=== PATIENT | male | born 1970 | race American Indian/Alaskan Native ===

== ENCOUNTER 2021-12-11 09:16 | Day surgery (SDC) | payer MEDICAID, SELFPAY ==
[2021-12-11] VITALS (15 sets, daily range): BP systolic 127–218; BP diastolic 74–147; PULSE 65–103; RESP 13–27; TEMP 36.2–37.4; O2SAT 96–100
--- NOTE | 2021-12-11 09:38 | ECG_ITS ---
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 Measurements Intervals [place] Rate: 64 P: 17 [place]: 175 QRS: -6 QRSD: 91 T: 10 QT: 425 QTc: 440 Interpretive Statements SINUS RHYTHM No previous ECG available for comparison Electronically Signed On 12-12-2021 9:19:31 CDT by Gunner Armando M.D. [id number]
--- NOTE | 2021-12-11 09:42 | W.ED.ABDPA2 ---
Documented by User: WAYNE Garcia 12/11/21 10:51 HPI - Abdominal Pain General: Chief Complaint: Abdominal Pain Stated Complaint: Says his guts are burning Time Seen by Provider: 12/11/21 09:22 History of Present Illness: Patient is a 51-year-old male comes to the ED with abdominal pain. Symptoms started approximately 2 hours ago. He is also having nausea and has been vomiting bile since onset of pain. Abdominal pain is located in the left and right lower quadrant and he rates the pain a 10 out of 10. Describes abdominal pain as a intense burning pain. He has never had any abdominal pain like this before and denies any past abdominal surgeries. Any movement with the torso causes worsening pain. Denies any fevers, chills, chest pain, shortness of breath, bladder or bowel symptoms. Patient says he has had normal BMs and had a normal bowel movement this morning. Yesterday he describes feeling completely normal and had no symptoms. Last meal was before midnight yesterday evening. Associated Symptoms: Reports nausea and vomiting; Denies chills, constipation, diarrhea, dysuria, fever(s), hematochezia and hematuria Review of Systems Const: Denies: fever(s), chills or fatigue Eyes: Denies: change in vision or eye discomfort ENMT: Denies: throat pain, odynophagia, nasal discharge or nasal congestion Card: Denies: chest pain, palpitations, edema, swelling of feet/ankles, dyspnea on exertion or orthopnea Resp: Denies: dyspnea, productive cough or non-productive cough GI: Reports: abdominal pain, nausea and vomiting; Denies: diarrhea, constipation or hematochezia : Denies: flank pain, difficulty urinating, dysuria or hematuria Musc: Denies: neck pain, back pain or extremity swelling Skin/Breast: Denies: rash or new lesions Neuro: Denies: headache(s), numbness in extremities or weakness in extremities PFSH ED PFSH: Medical History No pertinent family history Surgical History No pertinent past surgical history Physical Exam Const: COMMON NORMALS: patient oriented x3 and alert GENERAL APPEARANCE: cooperative and in distress; not comfortable (Patient appears uncomfortable and in distress due to pain) HENMT: COMMON NORMALS: normocephalic HEAD & SCALP: normocephalic MOUTH: Normal oral and palatal mucosa present THROAT: posterior oropharynx normal and uvula midline Neck/C-Spine: COMMON NORMALS: supple GENERAL: Yes normal visual inspection Resp: COMMON NORMALS: normal respiratory effort, No retractions, No use of accessory muscles and clear to auscultation bilaterally AUSCULTATION: clear to auscultation bilaterally Cardio: COMMON NORMALS: regular rate, regular rhythm, S1 normal heart sound present, S2 normal heart sound present, No gallops present (Cardio), No clicks present (Cardio), No murmurs present (Cardio) and Peripheral pulses 2+ throughout RATE: regular rate RHYTHM: regular rhythm HEART SOUNDS: S1 normal heart sound present and S2 normal heart sound present PERIPHERAL PULSES: Peripheral pulses 2+ throughout GI: COMMON NORMALS: Normal to inspection, nondistended, normoactive bowel sounds present, Soft to palpation and no masses PALPATION: Yes Soft to palpation and Yes Tenderness to palpation present (GI) Details: LLQ and RLQ : COMMON NORMALS: Yes no CVA tenderness BLADDER/KIDNEY EXAM: Yes no CVA tenderness Back/Pelvis: COMMON NORMALS: no CVA tenderness Extremity: COMMON NORMALS: normal to inspection Neuro: COMMON NORMALS: patient oriented x3 SENSORIUM/ORIENTATION: Yes alert GAIT: Yes Normal gait present Skin: GENERAL SKIN EXAM: dry skin Course Reevaluation(s): Reevaluation #1: After patient received IV morphine and Zofran his symptoms improved and he was resting comfortably on exam bed. Time: 10:30 Consultations: Consultation #1: I contacted Dr. Pearl the general surgeon on-call and told about patient case. He is can admit patient and take him to surgery today. Time: 10:35 Vital Signs: Vital signs: Vital Signs Temperature 97.8 F 12/11/21 09:24 Pulse Rate 65 12/11/21 10:17 Respiratory Rate 16 12/11/21 10:17 Blood Pressure 150/112 12/11/21 10:17 Pulse Oximetry 99 12/11/21 10:17 MDM - Abdominal Pain Medical Decision Making Patient is a 51-year-old male comes to the ED with abdominal pain nausea and vomiting. Denies any past abdominal surgeries. Patient has elevated blood pressure but rest of vitals are stable. Patient patient has central obesity and appears in some distress due to pain. right lower and left lower quadrant tenderness upon palpation. Rest of exam is benign. White blood cell count 12. CT of abdomen shows acute appendicitis. I contacted Dr. Pearl and told about patient case and CT findings of acute appendicitis. Last p.o. intake was yesterday evening, so Dr. Pearl will take him to surgery today. I contacted her community chest officer Christina and she contacted bottle house quality control technician to get surgical team ready. IV Zosyn started here in the ED. Lab Data I reviewed the patient's lab results. : 12/11/21 10:11 12/11/21 10:11 Labs/Radiology: Radiology Impressions Abdomen/Pelvis CT 12/11/21 09:47 IMPRESSION: Acute appendicitis. ADDENDUM: 12/11/21 1029 THIS REPORT CONTAINS FINDINGS THAT MAY BE CRITICAL TO PATIENT CARE. The findings were verbally communicated via telephone conference with PAULINE LIVINGSTON at 10:27 AM CDT on 12/11/2021. The findings were acknowledged and understood. Laboratory Results WBC 12.0 10^3/uL (4.0-10.0) H 12/11/21 10:11 RBC 5.56 10^6/uL (4.1-5.3) H 12/11/21 10:11 Hgb 17.2 g/dL (11.7-16.6) H 12/11/21 10:11 Hct 48.4 % (42.0-52.0) 12/11/21 10:11 MCV 87.1 fl (80-94) 12/11/21 10:11 MCH 30.9 pg (28.0-34.0) 12/11/21 10:11 MCHC 35.5 g/dL (30.0-36.0) 12/11/21 10:11 RDW 12.6 % (12.1-15.1) 12/11/21 10:11 Plt Count 237 10^3/cmm (130-400) 12/11/21 10:11 MPV 11.1 fL (7.4-10.4) H 12/11/21 10:11 Neut % (Auto) 81.4 % 12/11/21 10:11 Lymph % (Auto) 12.0 % 12/11/21 10:11 [place] % (Auto) 4.6 % 12/11/21 10:11 Eos % (Auto) 0.7 % 12/11/21 10:11 Baso % (Auto) 0.7 % 12/11/21 10:11 Neut # (Auto) 9.77 10^3/uL (1.8-7.7) H 12/11/21 10:11 Lymph # (Auto) 1.4 10^3/uL (0.8-4.8) 12/11/21 10:11 [place] # (Auto) 0.6 10^3/uL (0.2-0.9) 12/11/21 10:11 Eos # (Auto) 0.1 10^3/uL (0.0-0.8) 12/11/21 10:11 Baso # (Auto) 0.1 10^3/uL (0.0-0.1) 12/11/21 10:11 Nucleated RBC % (auto) 0 % 12/11/21 10:11 Nucleated RBCs # 0.0 /100WBC 12/11/21 10:11 Sodium 140 mmol/L (136-145) 12/11/21 10:11 Potassium 4.2 mmol/L (3.5-5.1) 12/11/21 10:11 Chloride 105 mmol/L (98-107) 12/11/21 10:11 Carbon Dioxide 22 mmol/L (22-29) 12/11/21 10:11 Anion Gap 17.2 (5-19) 12/11/21 10:11 BUN 18 mg/dL (6-20) 12/11/21 10:11 Creatinine 1.0 mg/dL (0.7-1.2) 12/11/21 10:11 Calculated Osmolality 295 mOsm/kg (285-295) 12/11/21 10:11 Lactic Acid 1.9 mmol/L (0.5-2.2) 12/11/21 10:11 Calcium 8.9 mg/dL (8.5-10.5) 12/11/21 10:11 Total Bilirubin 0.4 mg/dL (0.15-1.2) 12/11/21 10:11 AST 18 U/L (0-40) 12/11/21 10:11 ALT 35 U/L (0-41) 12/11/21 10:11 Alkaline Phosphatase 116 IU/L (40-130) 12/11/21 10:11 Total Protein 7.8 g/dL (6.6-8.7) 12/11/21 10:11 Albumin 4.6 g/dL (3.5-5.2) 12/11/21 10:11 Globulin 3.2 g/dL (1.3-4.6) 12/11/21 10:11 Lipase 26 U/L (13-60) 12/11/21 10:11 Discharge Plan Discharge Patient Disposition: Admitted As Inpatient Clinical Impression: Acute appendicitis Qualifiers: Acute appendicitis type: with localized peritonitis Appendicitis gangrene presence: without gangrene Appendicitis perforation presence: without perforation Appendicitis abscess presence: without abscess Qualified Code(s): K35.30 - Acute appendicitis with localized peritonitis, without perforation or gangrene Condition: Stable Sign Out Sign Out Data: Patient Sign Out occurred on 12/11/21 at 10:52. Patient's care was discussed, and care was transferred from to Junior Del Rio DO. Coding Level of Care Code ED It Infrastructure Architect for Chg Fwd Exam Comprehensive Documented by User: Junior Del Rio DO 12/11/21 11:14 HPI - Abdominal Pain General: Chief Complaint: Abdominal Pain Stated Complaint: Says his guts are burning Time Seen by Provider: 12/11/21 09:22 [facility] PFSH: Medical History No pertinent family history Surgical History No pertinent past surgical history Course Vital Signs: Vital signs: Vital Signs Temperature 97.8 F 12/11/21 09:24 Pulse Rate 65 12/11/21 10:17 Respiratory Rate 16 12/11/21 10:17 Blood Pressure 150/112 12/11/21 10:17 Pulse Oximetry 99 12/11/21 10:17 MDM - Abdominal Pain Medical Decision Making Patient is a 51-year-old male comes to the ED with abdominal pain nausea and vomiting. Denies any past abdominal surgeries. Patient has elevated blood pressure but rest of vitals are stable. Patient patient has central obesity and appears in some distress due to pain. right lower and left lower quadrant tenderness upon palpation. Rest of exam is benign. White blood cell count 12. CT of abdomen shows acute appendicitis. I contacted Dr. Pearl and told about patient case and CT findings of acute appendicitis. Last p.o. intake was yesterday evening, so Dr. Pearl will take him to surgery today. I contacted her community chest officer Christina and she contacted bottle house quality control technician to get surgical team ready. IV Zosyn started here in the ED. Chart reviewed and patient discussed with midlevel. Agree with assessment and plan. Patient seen and examined he has diffuse abdominal tenderness. Interestingly it is not focal to the right lower quadrant. CT does show acute appendicitis his white count at 12,000 with a left shift. Pauline Livingston is talked to surgery patient will be taken directly from the ER to the operating room. Lab Data : 12/11/21 10:11 12/11/21 10:11 Labs/Radiology: Radiology Impressions Abdomen/Pelvis CT 12/11/21 09:47 IMPRESSION: Acute appendicitis. ADDENDUM: 12/11/21 1029 THIS REPORT CONTAINS FINDINGS THAT MAY BE CRITICAL TO PATIENT CARE. The findings were verbally communicated via telephone conference with PAULINE LIVINGSTON at 10:27 AM CDT on 12/11/2021. The findings were acknowledged and understood. Laboratory Results WBC 12.0 10^3/uL (4.0-10.0) H 12/11/21 10:11 RBC 5.56 10^6/uL (4.1-5.3) H 12/11/21 10:11 Hgb 17.2 g/dL (11.7-16.6) H 12/11/21 10:11 Hct 48.4 % (42.0-52.0) 12/11/21 10:11 MCV 87.1 fl (80-94) 12/11/21 10:11 MCH 30.9 pg (28.0-34.0) 12/11/21 10:11 MCHC 35.5 g/dL (30.0-36.0) 12/11/21 10:11 RDW 12.6 % (12.1-15.1) 12/11/21 10:11 Plt Count 237 10^3/cmm (130-400) 12/11/21 10:11 MPV 11.1 fL (7.4-10.4) H 12/11/21 10:11 Neut % (Auto) 81.4 % 12/11/21 10:11 Lymph % (Auto) 12.0 % 12/11/21 10:11 [place] % (Auto) 4.6 % 12/11/21 10:11 Eos % (Auto) 0.7 % 12/11/21 10:11 Baso % (Auto) 0.7 % 12/11/21 10:11 Neut # (Auto) 9.77 10^3/uL (1.8-7.7) H 12/11/21 10:11 Lymph # (Auto) 1.4 10^3/uL (0.8-4.8) 12/11/21 10:11 [place] # (Auto) 0.6 10^3/uL (0.2-0.9) 12/11/21 10:11 Eos # (Auto) 0.1 10^3/uL (0.0-0.8) 12/11/21 10:11 Baso # (Auto) 0.1 10^3/uL (0.0-0.1) 12/11/21 10:11 Nucleated RBC % (auto) 0 % 12/11/21 10:11 Nucleated RBCs # 0.0 /100WBC 12/11/21 10:11 Sodium 140 mmol/L (136-145) 12/11/21 10:11 Potassium 4.2 mmol/L (3.5-5.1) 12/11/21 10:11 Chloride 105 mmol/L (98-107) 12/11/21 10:11 Carbon Dioxide 22 mmol/L (22-29) 12/11/21 10:11 Anion Gap 17.2 (5-19) 12/11/21 10:11 BUN 18 mg/dL (6-20) 12/11/21 10:11 Creatinine 1.0 mg/dL (0.7-1.2) 12/11/21 10:11 Calculated Osmolality 295 mOsm/kg (285-295) 12/11/21 10:11 Lactic Acid 1.9 mmol/L (0.5-2.2) 12/11/21 10:11 Calcium 8.9 mg/dL (8.5-10.5) 12/11/21 10:11 Total Bilirubin 0.4 mg/dL (0.15-1.2) 12/11/21 10:11 AST 18 U/L (0-40) 12/11/21 10:11 ALT 35 U/L (0-41) 12/11/21 10:11 Alkaline Phosphatase 116 IU/L (40-130) 12/11/21 10:11 Total Protein 7.8 g/dL (6.6-8.7) 12/11/21 10:11 Albumin 4.6 g/dL (3.5-5.2) 12/11/21 10:11 Globulin 3.2 g/dL (1.3-4.6) 12/11/21 10:11 Lipase 26 U/L (13-60) 12/11/21 10:11 Discharge Plan Discharge Patient Disposition: Admitted As Inpatient Clinical Impression: Acute appendicitis Qualifiers: Acute appendicitis type: with localized peritonitis Appendicitis gangrene presence: without gangrene Appendicitis perforation presence: without perforation Appendicitis abscess presence: without abscess Qualified Code(s): K35.30 - Acute appendicitis with localized peritonitis, without perforation or gangrene Condition: Stable Sign Out Sign Out Data: Patient Sign Out occurred on 12/11/21 at 10:52. Patient's care was discussed, and care was transferred from to Junior Del Rio DO. Coding Level of Care Code ED It Infrastructure Architect for g Fwd Exam Comprehensive
--- NOTE | 2021-12-11 09:47 | CTR_ITS ---
PROCEDURE INFORMATION: Exam: CT Abdomen And Pelvis Without Contrast Exam date and time: 12/11/2021 9:59 AM Age: 51 years old Clinical indication: Abdominal pain; Localized; Right lower quadrant (rlq); Additional info: Llq abdominal pain, n/v TECHNIQUE: Imaging protocol: Computed tomography of the abdomen and pelvis without contrast. Radiation optimization: All CT scans at this facility use at least one of these dose optimization techniques: automated exposure control; mA and/or kV adjustment per patient size (includes targeted exams where dose is matched to clinical indication); or iterative reconstruction. COMPARISON: No relevant prior studies available. RADIATION DOSE METRICS: Total DLP (mGy-cm): 1857.51 FINDINGS: Liver: Normal. No mass. Gallbladder and bile ducts: Normal. No calcified stones. No ductal dilation. Pancreas: Normal. No ductal dilation. Spleen: Normal. No splenomegaly. Adrenal glands: Normal. No mass. Kidneys and ureters: Normal. No hydronephrosis. Stomach and bowel: Unremarkable. No obstruction. No mucosal thickening. Appendix: The appendix is dilated to a diameter of 12 mm and contains appendicoliths. This indicates acute appendicitis. There is no free fluid. No abscess is seen. Intraperitoneal space: See Appendix finding. Vasculature: Unremarkable. No abdominal aortic aneurysm. Lymph nodes: Unremarkable. No enlarged lymph nodes. Urinary bladder: Unremarkable as visualized. Reproductive: Unremarkable as visualized. Bones/joints: Degenerative changes are present in the spine. Soft tissues: There is a small uncomplicated fat containing umbilical hernia. CT/CT abdomen pelvis wo con [id number] IMPRESSION: Acute appendicitis.
[2021-12-11] MEDS: ondansetron 2 mg/ML SDV 2 mL 4 MG IVP (10:22)
[2021-12-11] MEDS: morphine 4 mg/mL SDV 1 mL IVP (10:22)
[2021-12-11 10:28] LABS: Basophils # 0.1 10^3/uL (0.0-0.1); Basophils % 0.7 %; Eosinophils # 0.1 10^3/uL (0.0-0.8); Eosinophils % 0.7 %; Hematocrit 48.4 % (42.0-52.0); Hemoglobin 17.2 g/dL (11.7-16.6); Lymphocytes # 1.4 10^3/uL (0.8-4.8); Mean Corpuscular HGB Conc 35.5 g/dL (30.0-36.0); Mean Corpuscular Hemoglobin 30.9 pg (28.0-34.0); Mean Corpuscular Volume 87.1 fl (80-94); Mean Platelet Volume 11.1 fL (7.4-10.4); Monocytes # 0.6 10^3/uL (0.2-0.9); Monocytes % 4.6 %; Neutrophils # 9.77 10^3/uL (1.8-7.7); Neutrophils % 81.4 %; Nucleated Red Blood Cells % 0 %; Platelet Count 237 10^3/cmm (130-400); Red Blood Count 5.56 10^6/uL (4.1-5.3); Red Cell Distribution Width 12.6 % (12.1-15.1)
--- NOTE | 2021-12-11 10:47 | P.ANESASSM_ITS ---
Pre-Anesthetic Assessment Height/Weight: Temp Pulse Resp BP Pulse Ox 97.8 F 65 16 150/112 99 12/11/21 09:24 12/11/21 10:17 12/11/21 10:17 12/11/21 10:17 12/11/21 10:17 Preop Diagnosis: appendicitis Familial anesthetic complications: None Was Beta Ariane taken within 24 hours: N/A Was Clonidine taken within 24 hours: N/A Social Alcohol and Tobacco 6 drinks per day, last drink 4 days ago pack(s) per day Exam alert, oriented x 3, clear to auscultation bilaterally and regular rate & rhythm Airway Submandibular: within normal limits Cervical ROM: within normal limits Mallampati: Class I Dentition: chipped (Chipped upper front tooth ) History/ROS No significant complaints Pulmonary None reported CV/HEM None reported None reported Hepatic None reported GI Gastroesophageal Reflux Disease Reflux N/V today Acute appendicitis Metabolic None reported Musc/skel None reported Neuropsych None reported Anesthetic Plan ASA status: 3 Anesthesia: Anesthesia Evaluation and General Other: We discussed risk and benefits of general anesthesia including PONV, sore throat (sometimes severe), corneal abrasion, positioning and peripheral nerve injuries, life threatening allergic reaction, post operative ICU admission requiring prolonged intubation, stroke, heart attack, , and rare incidences of recall. Patient consents to proceed with general anesthesia. Plan RSI, GETA Pre op meds famotidine 20 mg PIV, 2 mg PIV midazolam, scopolamine patch, 25 mg diphenhydramine Risk of > 500 ml blood loss (7ml/kg in children): No Medications/Allergies Home Medications Medication Instructions Recorded Confirmed Last Taken Type No Known Home Medications 12/11/21 12/11/21 Unknown History Allergies Allergy/AdvReac Type Severity Reaction Status Date / Time No Known Allergies Allergy Unverified 12/11/21 10:46 [facility] Anesthesia Medical History No pertinent family history Surgical History No pertinent past surgical history Data Anesthesia : 12/11/21 10:11 12/11/21 10:11 Short CBC 12/11/21 Range/Units 10:11 WBC 12.0 H (4.0-10.0) 10^3/uL Hgb 17.2 H (11.7-16.6) g/dL Hct 48.4 (42.0-52.0) % MCV 87.1 (80-94) fl Plt Count 237 (130-400) 10^3/cmm Neut % (Auto) 81.4 % Neut # (Auto) 9.77 H (1.8-7.7) 10^3/uL Cardiac Studies: No Data to Display
[2021-12-11 10:49] LABS: Alanine Aminotransferase 35 U/L (0-41); Albumin Level 4.6 g/dL (3.5-5.2); Alkaline Phosphatase 116 IU/L (40-130); Anion Gap 17.2 (5-19); Aspartate Amino Transferase 18 U/L (0-40); Blood Urea Nitrogen 18 mg/dL (6-20); Calcium 8.9 mg/dL (8.5-10.5); Carbon Dioxide 22 mmol/L (22-29); Chloride 105 mmol/L (98-107); Globulin 3.2 g/dL (1.3-4.6); Glomerular Filtration Rate 79.1 mL/min (90-130); Glucose 152 mg/dL (65-115); Lipase 26 U/L (13-60); Osmolality Calculated 295 mOsm/kg (285-295); Potassium 4.2 mmol/L (3.5-5.1); Sodium 140 mmol/L (136-145); Total Bilirubin 0.4 mg/dL (0.15-1.2); Total Protein 7.8 g/dL (6.6-8.7)
[2021-12-11 10:50] LABS: Lactic Sepsis W/Reflex 1.9 mmol/L (0.5-2.2)
--- NOTE | 2021-12-11 11:16 | PM.HP ---
Providers/Chief Complaint Chief Complaint: Says his guts are burning History of Present Illness Onesimo Rivers is a 51 year old male who presents the hospital with a 3-hour history of lower abdominal pain. He reports that the pain is sharp and constant. It does not radiate. He rates the pain as 10 out of 10. Palpation and movement makes the pain worse. Nothing makes it better. He reports nausea and emesis but denies hematemesis. His last bowel movement was this morning. Denies hematochezia or melena. He reports chills but denies fever. Denies any other symptoms. Review of Systems General: Reports: 10 or more systems reviewed and unremarkable except in HPI and below Medications/Allergies Home Medications Medication Instructions Recorded Confirmed Last Taken Type No Known Home Medications 12/11/21 12/11/21 Unknown History Allergies Allergy/AdvReac Type Severity Reaction Status Date / Time No Known Allergies Allergy Unverified 12/11/21 10:46 PFSH Acute PFSH: Surgical History H/O left knee surgery Vitals/I&O/Wt Last Vital Signs Temp 97.8 F 12/11/21 09:24 Pulse 65 12/11/21 10:17 Resp 16 12/11/21 10:17 BP 150/112 12/11/21 10:17 Pulse Ox 99 12/11/21 10:17 Physical Exam Narrative: General : Patient is well developed , no acute distress, oriented x3 Head : Normal cephalic, a-traumatic. Ears : Pinnae and external canal are normal. Hearing is normal. Eyes : PERRLA, Sclera and injection are normal. No conjunctival discharge. Nose : Mucous membranes are without erythema. Throat : buccal mucosa is normal, gums are without significant recession or hypertrophy. Lungs : Equal chest rise bilaterally, no use of accessory muscles, trachea is midline. Cor : Rate and rhythm are normal. Abdomen : Soft, ND, TTP RLQ, no g/r/m Extremities : No edema, no cyanosis or clubbing, dorsalis pedis pulses are present bilaterally, non-tender to palpation of calves. Upper extremities are normal bilaterally. Back : non-tender to palpation, no CVA tenderness. Neuro : CN II - XII intact, Upper and lower extremities have equal and full strength Data : 12/11/21 10:11 12/11/21 10:11 Micro: Microbiology 12/11/21 10:43 Blood Culture - Preliminary Blood SPECIMEN COLLECTED 12/11/21 10:34 Blood Culture - Preliminary Blood SPECIMEN COLLECTED A&P Assessment and plan (1) Acute appendicitis: Laparoscopic Appendectomy The risks and benefits of the procedure, including but not limited to, bleeding, infection, scar, numbness, pain, damage to surrounding structures, conversion to an open procedure, were explained to the patient. He is understanding of the risks and wishes to proceed. Status: Acute Qualifiers: Acute appendicitis type: with localized peritonitis Appendicitis abscess presence: without abscess Appendicitis gangrene presence: without gangrene Appendicitis perforation presence: without perforation Qualified Code(s): K35.30 - Acute appendicitis with localized peritonitis, without perforation or gangrene Attestations Medical Necessity Statement*: Patient will undergo appendectomy. 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
--- NOTE | 2021-12-11 11:22 | SUR.PHASEI ---
1100 PT TO OPS BAY 8 PT AWAKE ALERT CLOTHES OFF AND GOWN ON, IV PATENT AND NS 1000 UP AT MOD RATE. AT BEDSIDE 1115 PT CARE ASSUMED BY GIOVANNA STARK.
[2021-12-11] MEDS: diphenhydrAMINE 50 mg/mL SDV 1mL 25 MG IVP (11:42)
[2021-12-11] MEDS: famotidine 20 mg/2 mL INJ IVP (11:45)
[2021-12-11] MEDS: piperacillin-tazobactam 3.375 GM in sodium chloride 0.9% (plus) 50 ML IV (11:52)
--- NOTE | 2021-12-11 12:26 | SUR.OPER ---
family updated of surgical status
--- NOTE | 2021-12-11 12:42 | P.OP_ITS ---
Operative Report Date of procedure: December 11, 2021 Pre-op diagnosis: Preop Diagnosis appendicitis Post-op diagnosis: acute appendicitis Procedure done: Laparoscopic appendectomy Specimens removed/disposition: appendix Surgeon: Dr. Leandro Pearl DO Estimated blood loss: 2 Complications: none apparent Brief History: Patient presented with acute appendicitis. Risks and benefits of surgery were explained and documented. Procedure: Patient was wheeled into the operative room and placed on the OR table in a supine position. Abdomen was inspected prepped and draped in usual sterile fashion. Time-out was performed and all present were in agreement. A 15 blade scalp was used to make a stab incision in the left upper quadrant and intra- abdominal insufflation was achieved using a Veress needle. After localizing the tissue incisions were made and a 12 millimeter trocar was placed into the umbilicus as well as a 5mm in the right lower quadrant and a 5 mm in the left lower quadrant . The appendix was identified and was mildly inflamed. I used the Voyant to ligate the mesoappendix at the base. I then used 2 PDS endo-loops to snare the base of the appendix. I then used the Voyant to ligate the appendix distally. The appendix was removed from the abdomen using an Endo- Catch bag through the umbilical incision. I examined the abdomen and no further pathology was identified. Hemostasis was noted. I then closed the umbilical site with a Alton-David and 0 Vicryl suture in a figure of 8 fashion. All ports removed. Skin was washed and dried. Incisions were closed with 4 O Vicryl in a subcuticular interrupted fashion. Skin glue was applied. Patient tolerated the procedure well.
--- NOTE | 2021-12-11 12:51 | PM.DCS ---
Discharge Providers Date of Discharge: December 11, 2021 Attending Provider at Discharge: Leandro Pearl DO Diagnoses at Discharge Discharge Diagnosis (1) Acute appendicitis: Status: Acute Qualifiers: Acute appendicitis type: with localized peritonitis Appendicitis abscess presence: without abscess Appendicitis gangrene presence: without gangrene Appendicitis perforation presence: without perforation Qualified Code(s): K35.30 - Acute appendicitis with localized peritonitis, without perforation or gangrene Reason for Visit Reason for Visit: Says his guts are burning Hospital Course Hospital Course Patient presented with acute appendicitis. He underwent laparoscopic appendectomy. Intraoperatively he was found to have very mild appendicitis. He was discharged home from the PACU with follow-up in general surgery in 2 weeks. Physical Exam Narrative: General : Patient is well developed , no acute distress, oriented x3 Head : Normal cephalic, a-traumatic. Ears : Pinnae and external canal are normal. Hearing is normal. Eyes : PERRLA, Sclera and injection are normal. No conjunctival discharge. Nose : Mucous membranes are without erythema. Throat : buccal mucosa is normal, gums are without significant recession or hypertrophy. Lungs : Equal chest rise bilaterally, no use of accessory muscles, trachea is midline. Cor : Rate and rhythm are normal. Abdomen : Soft, ND, appropriately tender to palpation, no g/r/m Extremities : No edema, no cyanosis or clubbing, dorsalis pedis pulses are present bilaterally, non-tender to palpation of calves. Upper extremities are normal bilaterally. Back : non-tender to palpation, no CVA tenderness. Neuro : CN II - XII intact, Upper and lower extremities have equal and full strength Discharge Data Studies Completed and Pending Completed Studies During Hospitalization Category Date Time Status CT abdomen pelvis wo con [id number] Urgent Cat Scan 12/11/21 09:47 Completed Pending at discharge Category Date Time Status Blood Culture Stat Lab 12/11/21 10:43 Results Urinalysis Stat Lab 12/11/21 09:38 Uncollected Pathology: Surgical [PTH] Routine Pth 12/11/21 12:27 Ordered Radiology Impressions Abdomen/Pelvis CT 12/11/21 09:47 IMPRESSION: Acute appendicitis. ADDENDUM: 12/11/21 1029 THIS REPORT CONTAINS FINDINGS THAT MAY BE CRITICAL TO PATIENT CARE. The findings were verbally communicated via telephone conference with PAULINE LIVINGSTON at 10:27 AM CDT on 12/11/2021. The findings were acknowledged and understood. Laboratory Results WBC 12.0 10^3/uL (4.0-10.0) H 12/11/21 10:11 RBC 5.56 10^6/uL (4.1-5.3) H 12/11/21 10:11 Hgb 17.2 g/dL (11.7-16.6) H 12/11/21 10:11 Hct 48.4 % (42.0-52.0) 12/11/21 10:11 MCV 87.1 fl (80-94) 12/11/21 10:11 MCH 30.9 pg (28.0-34.0) 12/11/21 10:11 MCHC 35.5 g/dL (30.0-36.0) 12/11/21 10:11 RDW 12.6 % (12.1-15.1) 12/11/21 10:11 Plt Count 237 10^3/cmm (130-400) 12/11/21 10:11 MPV 11.1 fL (7.4-10.4) H 12/11/21 10:11 Neut % (Auto) 81.4 % 12/11/21 10:11 Lymph % (Auto) 12.0 % 12/11/21 10:11 Beauregard % (Auto) 4.6 % 12/11/21 10:11 Eos % (Auto) 0.7 % 12/11/21 10:11 Baso % (Auto) 0.7 % 12/11/21 10:11 Neut # (Auto) 9.77 10^3/uL (1.8-7.7) H 12/11/21 10:11 Lymph # (Auto) 1.4 10^3/uL (0.8-4.8) 12/11/21 10:11 Beauregard # (Auto) 0.6 10^3/uL (0.2-0.9) 12/11/21 10:11 Eos # (Auto) 0.1 10^3/uL (0.0-0.8) 12/11/21 10:11 Baso # (Auto) 0.1 10^3/uL (0.0-0.1) 12/11/21 10:11 Nucleated RBC % (auto) 0 % 12/11/21 10:11 Nucleated RBCs # 0.0 /100WBC 12/11/21 10:11 Sodium 140 mmol/L (136-145) 12/11/21 10:11 Potassium 4.2 mmol/L (3.5-5.1) 12/11/21 10:11 Chloride 105 mmol/L (98-107) 12/11/21 10:11 Carbon Dioxide 22 mmol/L (22-29) 12/11/21 10:11 Anion Gap 17.2 (5-19) 12/11/21 10:11 BUN 18 mg/dL (6-20) 12/11/21 10:11 Creatinine 1.0 mg/dL (0.7-1.2) 12/11/21 10:11 GFR Calculation 79.1 mL/min (90-130) L 12/11/21 10:11 Glucose 152 mg/dL (65-115) H 12/11/21 10:11 Calculated Osmolality 295 mOsm/kg (285-295) 12/11/21 10:11 Lactic Acid 1.9 mmol/L (0.5-2.2) 12/11/21 10:11 Calcium 8.9 mg/dL (8.5-10.5) 12/11/21 10:11 Total Bilirubin 0.4 mg/dL (0.15-1.2) 12/11/21 10:11 AST 18 U/L (0-40) 12/11/21 10:11 ALT 35 U/L (0-41) 12/11/21 10:11 Alkaline Phosphatase 116 IU/L (40-130) 12/11/21 10:11 Total Protein 7.8 g/dL (6.6-8.7) 12/11/21 10:11 Albumin 4.6 g/dL (3.5-5.2) 12/11/21 10:11 Globulin 3.2 g/dL (1.3-4.6) 12/11/21 10:11 Lipase 26 U/L (13-60) 12/11/21 10:11 Procedures Performed Laparoscopic appendectomy Vitals Last Vital Signs Temp 97.2 F L 12/11/21 11:00 Pulse 65 12/11/21 11:17 Resp 16 12/11/21 11:17 BP 150/112 12/11/21 11:17 Pulse Ox 99 12/11/21 11:17 Discharge Plan Discharge Patient Disposition: Home Condition: Stable Prescriptions: New hydrocodone-acetaminophen 5-325 mg tablet 1 tab PO Q4H PRN (Reason: pain) Qty: 30 0RF amoxicillin-pot clavulanate 875-125 mg tablet 1 tab PO Q12H 7 Days Qty: 14 0RF Discharge Orders: Discharge Order (Routine); Ordered 12/11/21 Ordered By: Leandro Pearl Referrals: Leandro Pearl DO [Physician] - 2 weeks Discharge Diet: Advance as tolerated Discharge Activity: Resume usual activity Activity Restrictions/Additional Instructions: Do not soak incisions under water for 2 weeks. Shower daily. No activity restrictions Discharge Attestations Time Spent in Discharge Care*: less than 30 min Quality Metrics Clinical Quality Measures [ No reported AMI, CVA or VTE this stay] Coding Level of Care Code Acute Chg FW DC note Diagnoses Acute appendicitis K35.30 Acute appendicitis type: with localized peritonitis Appendicitis abscess presence: without abscess Appendicitis gangrene presence: without gangrene Appendicitis perforation presence: without perforation
[2021-12-11] MEDS: labetalol 5 mg/mL SDV 20mL IVP ×2 (12:52→13:02)
[2021-12-11] MEDS: hyDRALAzine 20 mg/mL INJ 1 mL 10 MG IVP ×2 (12:57→13:24)
--- NOTE | 2021-12-11 13:18 | SUR.PHASEI ---
1246 PT TO PACU AWAKES TO VOICE, PT MOANING, QUICKLY BACK TO SLEEP MANUAL ASSIST NEEDED TO KEEP AIRWAY OPEN, SATS 96-98% WITH GOOD AIRMOVEMENT , ARony TAD CROSS TIE TURNER AT BEDSIDE, ORDERS GIVEN FOR LABETOLOL FOR ELEVATED BP , ORAL AIRWAY PLACED BY CROSS TIE TURNER AT BEDSIDE, PT TOLERATED WELL, MONITOR SR NO ECTOPY, IV TO LT AC #19 WITH NS 800ML UP AT MOD RATE, ID BRACELET TO LT WRIST, PT ID'D WITH 2 IDENTIFIERS, ABDOMEN LARGE ROUND SOFT WITH 4 SITES WITH SKIN GLUE , BILAT SCDS ON .
--- NOTE | 2021-12-11 13:36 | SUR.PHASEI ---
PT SLEEPS IF NOT DISTURBED, MONITOR SR NO ECTOPY, BP NOW 139/88 , SEE EARLIER BP MEDS GIVEN, DR MOREJON AT BEDSIDE, PT OK TO GO TO OPS SIDE, PT TO GO HOME TODAY.
--- NOTE | 2021-12-11 13:54 | ANE.PACU2 ---
Inpatient post-anesthesia follow up: Airway intact: Yes Vital signs: Temperature 98.4 F Pulse Rate 74 Respiratory Rate 20 Blood Pressure 127/74 Pulse Oximetry 99 Oxygen Delivery Me thod Nasal Cannula Oxygen Flow Rate 3 Fraction of Inspir ed Oxygen Hydration adequate: Yes Nausea and vomiting: No Pain level: 3 Mental status: Baseline
[2021-12-11] MEDS: HYDROcodone-acetaminophen 5-325 mg Tablet 1 TAB PO (14:11)
== END 2021-12-11 14:25 | disposition home or self-care (01) ==
LOC: ER 09:46 → OR 10:36
PROVIDERS: Physician Assistant; Emergency Provider Family Medicine; Visit Provider Surgery
PROC: 0DTJ4ZZ Resection of Appendix, Percutaneous Endoscopic Approach (ICD-10-PCS; CPT 44970; principal; 2021-12-11 12:05)
DX: K35.30 Acute appendicitis with localized peritonitis, without perforation or gangrene (principal); K21.9 Gastro-esophageal reflux disease without esophagitis
CPT/HCPCS: 44970; 36415; 74176; 80053; 83605; 83690; 85025; 87040; 88304; 93005; J0330; J0360; J1100; J1200; J2250; J2270; J2405; J2543; J2704; J2710; J3010; J3490

== ENCOUNTER 2022-04-19 08:54 | Outpatient (CLI) | payer BC, MEDICAID, SELFPAY ==
--- NOTE | 2022-04-19 08:45 | MR_ITS ---
WS: [id number] MRI RIGHT KNEE NONCONTRAST TECHNIQUE: Axial PD, coronal PD fat sat, coronal PD, sagittal PD, and sagittal PD fat-sat images obta ined. CLINICAL INFORMATION: right knee pain COMPARISON: None. FINDINGS: Distal quadriceps and patella tendons are intact. Advanced tricompartmental arthritis. Hypertrophic p atella. History of prior meniscectomy presumably involving the medial meniscus. Normal PCL. Chronic t hinning of the ACL with mucoid degeneration. Diminutive ACL appears grossly intact. Suspected prior c hronic tear. Near [id number] articulation involving the medial joint compartment. Subchondral edema in the femor al condyles and associated tibial plateau. Chronic appearing thinning of the lateral meniscus with te ar involving the meniscal root with blunting. Presumed prior medial meniscus meniscectomy with postop erative changes medial meniscus. Intrasubstance signal abnormality posterior horn medial meniscus wit h blunting of the anterior and posterior horns. 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 Moderate chondromalacia patella. No subchondral edema. Medial and lateral patellar retinaculum appear intact. Normal popliteal fossa. Grade 1-2 injury involving the medial collateral ligament with fluid and edema superficial and deep to the MCL. Lateral collateral ligament appears intact. Small suprapa tellar effusion. MR/MR knee RT wo con* [id number] IMPRESSION: 1. T1 and T2 signal abnormality involving the ACL consistent with mucoid degen eration. Chronic appearing thinning of the ACL appears somewhat diminutive like ly due to chronic tear. 2. Normal PCL. 3. Advanced tricompartmental arthritis with grade IV chondromalacia involving the medial and lateral joint compartments with subchondral edema. 4. Near complete loss of the medial joint compartment likely due to prior meni scectomy. Blunting of the residual medial meniscus with intrasubstance signal a bnormality involving the posterior horn. 5. Chronic appearing thinning of the lateral meniscus with tear along the meni scal root. 6. Grade 1-2 injury involving the MCL. Normal LCL 7. Moderate chondromalacia patella. Outbridge grading: grade IV: full-thickness cartilage loss with underlying bone reactive changes
== END 2022-04-19 08:55 | disposition home or self-care (01) ==
LOC: RAD 08:55
PROVIDERS: Visit Provider Emergency Medicine
DX: M25.561 Pain in right knee (principal); M22.41 Chondromalacia patellae, right knee; M17.9 Osteoarthritis of knee, unspecified
CPT/HCPCS: 73721

== ENCOUNTER 2022-04-20 15:32 | Outpatient (CLI) | payer BC, MEDICAID, SELFPAY ==
--- NOTE | 2022-04-20 15:15 | MR_ITS ---
WS: [id number] MRI RIGHT ANKLE NONCONTRAST TECHNIQUE: Sagittal proton density, sagittal STIR, axial proton density, axial T1, axial T2 fat sat, coronal proton density, coronal proton density fat sat, coronal T2 fat sat. CLINICAL INFORMATION: right ankle pain COMPARISON: None. FINDINGS: Normal ankle mortise. Normal bone marrow signal in the lateral malleolus and tibial plafond. Normal b one marrow signal in the talar dome. Suspected tiny avulsion with edema at the tip of the medial mall eolus although not well visualized. Increased T2 signal abnormality within the deltoid ligament nita tible with ligamentous injury. Normal bone marrow signal in the calcaneus. Distal Achilles is normal in appearance. Small amount of fluid in the retrocalcaneal bursa. Tenosynovitis along the peroneal tendons and peroneal tendon sheaths. Tenosynovitis involving the tib ialis posterior, flexor digitorum longus, flexor hallucis longus. Normal extensor compartment tendons . Normal cuboid. Base of the 5th metatarsal appears normal. Mild to moderate degenerative arthritis i nvolving the talocalcaneal articulation and talonavicular joint. Normal plantar aponeurosis. Anterior talofibular ligament is not well visualized likely torn. Small amount of fluid in the adjacent anter olateral gutter. Irregularity along the anterior tibiofibular ligament suspicious for ligamentous inj ury. Correlation for high ankle sprain. Fluid and edema along the flexor retinaculum. MR/MR ankle RT wo con* [id number] IMPRESSION: 1. Tiny suspected avulsion at the tip of the medial malleolus with tiny amount of edema. This measures approximately 2 mm and is difficult to further evaluat e due to size. 2. Increased signal abnormality in the adjacent deltoid ligament compatible wi th ligamentous injury. 3. Normal ankle mortise. 4. Tears of the anterior talofibular and anterior tibiofibular ligaments with associated edema and fluid in the anterolateral gutter. Recommend correlation w ith high ankle sprain. 5. Small amount of fluid in the retrocalcaneal bursa. 6. Tenosynovitis involving the peroneal tendons and flexor compartment tendons including tibialis posterior, 7. Normal extensor compartment tendons. 8. No evidence of avascular necrosis.
== END 2022-04-20 15:33 | disposition home or self-care (01) ==
LOC: RAD 15:33
PROVIDERS: Visit Provider Emergency Medicine
DX: S93.491A Sprain of other ligament of right ankle, initial encounter (principal); M65.871 Other synovitis and tenosynovitis, right ankle and foot; X58.XXXA Exposure to other specified factors, initial encounter
CPT/HCPCS: 73721

== ENCOUNTER → 2022-04-25 14:01 | Outpatient (BNVA) | payer BC, MEDICAID, SELFPAY | PROVIDERS: Visit Provider Nurse Practitioner Family | DX: S83.206A Unspecified tear of unspecified meniscus, current injury, right knee, initial encounter (principal); S82.51XA Displaced fracture of medial malleolus of right tibia, initial encounter for closed fracture; V86.41XA Person injured while boarding or alighting from ambulance or fire engine, initial encounter; M17.11 Unilateral primary osteoarthritis, right knee | CPT/HCPCS: 73562; 73610 ==

== ENCOUNTER → 2022-05-04 13:10 | Outpatient (BNVA) | payer BC, MEDICAID, SELFPAY | PROVIDERS: Visit Provider Specialist | DX: M17.11 Unilateral primary osteoarthritis, right knee (principal) | CPT/HCPCS: 73560; 73565 ==

== ENCOUNTER 2022-05-04 14:22 | Outpatient (CLI) | payer BC, MEDICAID, SELFPAY | END 2022-05-04 14:23 | disposition home or self-care (01) | LOC: SPT 14:22 | PROVIDERS: Visit Provider Specialist | DX: Z46.89 Encounter for fitting and adjustment of other specified devices (principal); M25.561 Pain in right knee | CPT/HCPCS: 97760; L1812 ==

== ENCOUNTER 2022-06-06 15:33 | Outpatient (CLI) | payer BC, MEDICAID, SELFPAY | END 2022-06-06 15:34 | disposition home or self-care (01) | LOC: SPT 15:34 | PROVIDERS: Visit Provider Specialist | DX: Z46.89 Encounter for fitting and adjustment of other specified devices (principal); S82.53XD Displaced fracture of medial malleolus of unspecified tibia, subsequent encounter for closed fracture with routine healing; X58.XXXD Exposure to other specified factors, subsequent encounter | CPT/HCPCS: 97760; L1902 ==

== ENCOUNTER → 2022-06-09 10:36 | Outpatient (BNVA) | payer BC, MEDICAID, SELFPAY | PROVIDERS: Visit Provider Podiatrist Foot & Ankle Surgery | DX: S93.421A Sprain of deltoid ligament of right ankle, initial encounter (principal); S82.51XA Displaced fracture of medial malleolus of right tibia, initial encounter for closed fracture; S93.401A Sprain of unspecified ligament of right ankle, initial encounter; X50.1XXA Overexertion from prolonged static or awkward postures, initial encounter | CPT/HCPCS: 73610 ==

== ENCOUNTER 2022-07-14 07:04 | Day surgery (SDC) | payer BC, MEDICAID, SELFPAY ==
[2022-07-13 12:06] VITALS: BMI 41.8
[2022-07-14] VITALS (10 sets, daily range): BP systolic 132–165; BP diastolic 88–114; PULSE 74–89; RESP 12–22; TEMP 36.1–36.4; O2SAT 90–100
[2022-07-14] MEDS: gabapentin 300 mg Capsule PO (07:38)
[2022-07-14] MEDS: CELEcoxib 200 mg Capsule 400 MG PO (07:38)
[2022-07-14] MEDS: sodium chloride 0.9% 1,000 ML 30 ML IV (07:38)
--- NOTE | 2022-07-14 08:58 | P.ANESASSM_ITS ---
Pre-Anesthetic Assessment Height/Weight: Height 1.8 m Weight 136.078 kg Temp Pulse Resp BP Pulse Ox O2 Del Method 97.0 F L 77 18 146/114 99 07/14/22 07:15 07/14/22 07:15 07/14/22 07:15 07/14/22 07:15 07/14/22 07:15 07/14/22 07:23 Preop Diagnosis: Right ankle instability Operation Date: 07/14/22 08:20 Proposed Procedures p right ankle arthroscopy CPT 30822 right ankle modified brostrom with internal brace CPT 70998,S93.491D,M25.57(Right) - Sherman Berman DPM s Brostrom Procedure Modified Brostrom(Right) - Sherman Berman DPM Familial anesthetic complications: none Was Beta Ariane taken within 24 hours: N/A Was Clonidine taken within 24 hours: N/A Last intake: Intake Last Liquid Date 07/13/22 Last Liquid Time 23:59 Last Solid Date 07/13/22 Last Solid Time 21:00 Social Alcohol and Tobacco Exam alert, oriented x 3 and regular rate & rhythm Airway Submandibular: within normal limits Cervical ROM: within normal limits Mallampati: Class II Dentition: full Pulmonary Chronic Obstructive Pulmonary Disease CV/HEM Hypertension Metabolic Morbid Obesity Anesthetic Plan ASA status: 2 Anesthesia: General and Regional (specify below) (right pop blk) Medications/Allergies Home Medications Medication Instructions Recorded Confirmed Last Taken Type ibuprofen 600 mg tablet 600 mg PO Q8H PRN pain #30 tabs 03/21/22 07/13/22 07/10/22 Rx vIT D2 PO .MONTHLY 03/21/22 07/12/22 06/17/22 History hinged knee brace #1 ea 05/04/22 07/12/22 Unknown Rx LACE UP ANKLE BRACE #1 ea 06/06/22 07/12/22 Unknown Rx lisinopril 40 mg tablet 40 mg PO DAILY #30 tabs 07/12/22 07/13/22 07/13/22 Rx hydrocodone 5 mg-acetaminophen 325 1 tab PO Q6H PRN pain 7 days #28 07/14/22 Unknown Rx mg tablet tabs Allergies Allergy/AdvReac Type Severity Reaction Status Date / Time No Known Allergies Allergy Verified 07/14/22 07:18 Current Medications Generic Name Dose Route Start Last Admin Trade Name Freq PRN Reason Stop Dose Admin Sodium Chloride 1,000 mls @ 30 mls/hr 07/14/22 07:15 07/14/22 07:38 Sodium Chloride 0.9% IV 07/15/22 07:14 30 mls/hr .Q24H LOLA Administration PFSH Anesthesia Surgical History H/O left knee surgery S/P appendectomy 12/11/21 Laparoscopic appendectomy Family History Father Cancer, Onset Age: 65 Colon Cancer Grandfather Cancer, Onset Age: 87 Colon Cancer Social History Smoking and tobacco status: current every day smoker Alcohol intake: current Alcohol intake frequency: few times a week Adopted: No Caregiver/support person: No Lives independently: Yes Household members: spouse Housing: House Marital status: Number of children: 9 Number of grandchildren: 7 Highest education level completed: Some College, No Degree service: No Current occupational status: employed 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 Current occupational exposures/hazards: Yes Pets and animals: Yes History of recent travel: No Current gender identity: Female Special garry needs: No Agree to transfusion: Yes Data Anesthesia Cardiac Studies: No Data to Display Anesthesia Procedures Nerve Block Nerve Block 1: Main Anesthesia: general anesthesia Time Out Performed: Yes Consent: requested by attending/covering physician, from patient, risks and benefits reviewed and patient agrees to proceed Nerve block location: popliteal (right) Anesthesia monitors applied: pulse oximetry, EKG, BP cuff and oxygen Nerve block position: semi sitting Anesthetic Used: ropivicaine 0.5% Amount of anesthesia used (mL): 30 Ultrasound used to: recognize landmarks Nerve Stimulator Used?: Yes Interscalene/Femoral BLK: 4 stimuplex 21 g needle used for position and inplane approach Injection: neg aspiration of heme Patient Tolerated Procedure: well Complications: none
--- NOTE | 2022-07-14 09:16 | W.PM.OPSUD ---
Surgery/Procedure H&P Update DATE OF PROCEDURE: July 14, 2022 DATE H&P PERFORMED: 06/24/22 CHANGES TO PREVIOUS DOCUMENTATION: No changes PREOP DIAGNOSIS: Right ankle instability PLANNED PROCEDURE: Operation Date: 07/14/22 08:20 Proposed Procedures p right ankle arthroscopy CPT 50144 right ankle modified brostrom with internal brace CPT 83494,S93.491D,M25.57(Right) - Sherman Berman DPM s Ayaz Procedure Modified Ayaz(Right) - Sherman Berman DPM
[2022-07-14] MEDS: ceFAZolin 2,000 MG in sodium chloride 0.9% (plus) 50 ML 100 MG IV (09:24)
[2022-07-14] MEDS: sodium chloride 0.9% 1,000 ML 100 ML IV (09:45)
--- NOTE | 2022-07-14 12:13 | PC.NURSE ---
patient awake and moving self up in bed. States he is a little dizzy with movement.
--- NOTE | 2022-07-14 15:11 | ANE.PACU2 ---
Inpatient post-anesthesia follow up: Airway intact: Yes Vital signs: Temperature 97.4 F Pulse Rate 74 Respiratory Rate 18 Blood Pressure 140/88 Pulse Oximetry 94 Oxygen Delivery Me thod Room Air Oxygen Flow Rate 8 Fraction of Inspir ed Oxygen Hydration adequate: Yes Nausea and vomiting: No Pain level: 3 Mental status: Baseline
--- NOTE | 2022-07-14 20:20 | P.OP_ITS ---
Operative Report Date of procedure: July 14, 2022 Pre-op diagnosis: Preop Diagnosis Right ankle instability Post-op diagnosis: 1. Right ankle instability 2. Peroneus brevis split longitudinal tear Post-op findings: Synovitis within the right ankle joint on arthroscopy. Right ATFL rupture. Right split longitudinal peroneus brevis tendon tear. Procedure done: 1. Right ankle arthroscopy CPT 52308 2. Right ankle modified Brostr?m with internal brace CPT 33957-96 3. Right peroneus brevis tendon repair CPT 74441-04 Implants: Two bio composite suture tack anchors from [employer] and 1 internal brace from [employer] Surgeon: Dorian Yen.P.M. Estimated blood loss: Less than 20 cc Complications: None Findings: See above Procedure: Patient is a 52-year-old male that has a history of chronic right ankle pain. The patient has had the aforementioned chief complaint for some time. Conservative treatment measures have been attempted and the patient has opted for surgical intervention at this time. A lengthy discussion regarding the procedure, including risks and complications has been had with the patient and is noted in the recent clinic note. Written and verbal consent have been obtained. All patient questions have been answered to the patient?s satisfaction. No written or verbal guarantees have been given or implied. The patient has been NPO since midnight. The history has been reviewed and the history and physical is current. The signed consent was confirmed and placed in the patient chart. Patient imaging has been reviewed and is consistent with the diagnosis. Under mild sedation, the patient was brought into the operating room and placed on the table in the supine position. The patient received a popliteal/saphenous block by the anesthesia department. IV antibiotics were given by the anesthesia team as preoperative surgical prophylaxis. General sedation was then performed by the anesthesiateam. A pneumatic tourniquet was then placed about the right thigh. The operative extremity was then prepped and draped in the usual fashion. Attention was directed to the anterior aspect of the right ankle where a 10 cc syringe containing lactated Ringer's was injected into the anteromedial portal of the ankle just medial to the tibialis anterior tendon to insufflate the joint. Next, a #15 blade was used to make a small stab incision over this area. A hemostat was used to bluntly dissect down to the level of the ankle joint capsule. This was pierced and there was an extravasation of joint fluid. The trocar and cannula for the ankle scope was inserted into this portal. The trocar was removed and the camera was inserted into the cannula to visualize the ankle joint. A standard inspection of the ankle joint was performed and there was noted to be significant synovitis within the ankle joint particularly around the anterior talofibular ligament. An anterolateral portal was then established using a #15 blade. The arthroscopic shaver was inserted into this incision and the synovitis of the ankle joint was debrided without incident. No osteochondral defects or cartilage injury were noted during the inspection. After debridement of the synovitis of the ankle joint the arthroscope was removed and the incision portals were closed using 4-0 nylon. Next, the right lower extremity was exsanguinated and elevated before the tourniquet was inflated to 325 mmHg. Attention was then directed to the lateral aspect of the right ankle. An 8 cm incision was made overlying the fibula along the course of the peroneal's. Dissection was carried down through subcutaneous and superficial fascia. Any bleeders were cauterized as necessary. The peroneal retinaculum was incised and reflected inferior to expose the underlying peroneal's. The tendon sheath was incised to further evaluate the tendons. The peroneus longus was examined and noted to be healthy and tubular and fashion with no split tears. The peroneus brevis was noted to be flattened with a split longitudinal tear measuring approximately 4.5 cm. There was also noted to be a low-lying peroneus brevis muscle belly. The low-lying muscle belly was excised. The peroneus brevis split tear was then repaired using 2-0 Ethibond in standard fashion to be tubularized the tendon. Next, attention was directed to the lateral ankle ligaments. There was noted to be significant mount of scar tissue over the anterior talofibular ligament region. The anterior talofibular ligament was incised from the fibula and reflected distally. The anterior surface of the fibula was scraped using a #15 blade in preparation for the bio composite suture tack anchors for the Brostr?m repair. Next, the talar component of the internal brace was placed into the talus per manufacture protocol. Next, the fibula was drilled in preparation for the bio composite suture anchors. These were inserted per the manufacture protocol and the Brostr?m repair was performed in standard fashion to dry up the anterior talofibular ligament with the foot in dorsiflexion and eversion. Next, the airplane pilot supervisor hole for the swivel lock anchor for the internal brace was drilled into the fibula. The internal brace was then inserted in standard fashion with the foot held in the neutral position. The site was then irrigated with copious muscle sterile saline before attention was directed to closure. The suture tails from the Brostr?m repair were then passed to the extensor retinaculum to augment the repair. Deep tissue including retinacular repair was performed with 2-0 Vicryl followed by subcuticular closure with 3-0 Vicryl and skin closure with 3-0 nylon in horizontal mattress fashion. The tourniquet was let down good hyperemic response was noted to all digits of the right foot. The incision site was dressed with Xeroform, 4 x 4 gauze, Kerlix before being placed in a well-padded below the knee posterior splint. The patient tolerated the procedure and anesthesia well and without complication. The patient was transported from the operating room to the recovery room with vital signs stable and vascular status intact to all digits of the right foot. The patient was given both written and verbal instructions to remain strict nonweightbearing to the operative extremity, to keep dressings/splint clean, dry and intact and to take pain medication as directed. The patient will follow-up in the outpatient setting at their scheduled appointment. The patient was discharged with my personal number and was instructed to call if any questions or issues should arise. They were discharged home once anesthesia criteria was met.
== END 2022-07-14 13:18 | disposition home or self-care (01) ==
PROVIDERS: PCP Family Medicine; Visit Provider Podiatrist Foot & Ankle Surgery
PROC: (CPT 27659; principal; 2022-07-14 08:20)
PROC: (CPT 27698; 2022-07-14 08:20)
DX: M25.371 Other instability, right ankle (principal); S93.491D Sprain of other ligament of right ankle, subsequent encounter; X58.XXXD Exposure to other specified factors, subsequent encounter; I10 Essential (primary) hypertension; E66.01 Morbid (severe) obesity due to excess calories; Z68.41 Body mass index [BMI] 40.0-44.9, adult; F17.210 Nicotine dependence, cigarettes, uncomplicated
CPT/HCPCS: 27659; 27698; 29897; C1713; J0690; J1100; J2250; J2370; J2405; J2704; J2795; J3010; J3490; J7030

== ENCOUNTER 2022-08-12 10:20 | Outpatient (CLI) | payer BC, MEDICAID, SELFPAY | END 2022-08-12 17:00 | disposition home or self-care (01) | LOC: SPT 08-23 10:21 | PROVIDERS: PCP Family Medicine; Visit Provider Podiatrist Foot & Ankle Surgery | DX: Z46.89 Encounter for fitting and adjustment of other specified devices (principal); S82.51XD Displaced fracture of medial malleolus of right tibia, subsequent encounter for closed fracture with routine healing; X58.XXXD Exposure to other specified factors, subsequent encounter | CPT/HCPCS: L4361 ==

== ENCOUNTER → 2022-08-22 13:07 | Outpatient (BNVA) | payer BC, MEDICAID, SELFPAY | PROVIDERS: PCP Family Medicine; Referring Provider Family Medicine; Visit Provider Specialist | DX: M17.12 Unilateral primary osteoarthritis, left knee (principal) | CPT/HCPCS: 73560; 73565 ==

== ENCOUNTER 2023-01-27 20:51 | Emergency (ER) | payer BC, MEDICAID, SELFPAY ==
[2023-01-27 21:07] VITALS: BP 146/98; PULSE 99; RESP 18; TEMP 36.9; O2SAT 98; BMI 39.6
--- NOTE | 2023-01-27 21:49 | ED_ITS ---
HPI - Burn/Smoke Inhalation General: Chief complaint: Burn/Smoke Inhalation Stated complaint: throat injury, burn Time Seen by Provider: 01/27/23 21:33 History of Present Illness: 53-year-old male patient comes in today with sore throat. Patient reports that he was smoking and was trying to hide the cigarette in his mouth when he accidentally swallowed it. Patient reports some nausea and vomiting but otherwise no significant abnormalities except for a sore throat posterior phar ynx. Patient appears in no acute distress. Respirations are even. Patient appears in mild pain. Associated symptoms: Deny fever(s) Review of Systems General: Reports: 10 or more systems reviewed and unremarkable except in HPI and below Const: Denies: fever(s) ENMT: Reports: throat pain PFSH ED PFSH: Medical History (Updated 01/27/23 @ 22:14 by SANJIV Iniguez) Psychiatric care Surgical History H/O left knee surgery S/P appendectomy 12/11/21 Laparoscopic appendectomy Family History Father Cancer, Onset Age: 65 Colon Cancer Grandfather Cancer, Onset Age: 87 Colon Cancer Social History Smoking and tobacco status: current every day smoker Alcohol intake: current Alcohol intake frequency: few times a week Substance/Drug Use: never Adopted: No Caregiver/support person: No Lives independently: Yes Household members: spouse Housing: House Marital status: Number of children: 9 Number of grandchildren: 7 Highest education level completed: Some College, No Degree service: No Current occupational status: employed 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 Current occupational exposures/hazards: Yes Pets and animals: Yes Do you think of yourself as: Straight/Heterosexual Current gender identity: Female Special garry needs: No Agree to transfusion: Yes Physical Exam Const: COMMON NORMALS: alert HENMT: COMMON NORMALS: normocephalic HEAD & SCALP: normocephalic THROAT: posterior oropharynx normal (Erythema with blistering) Neck/C-Spine: GENERAL: Yes normal visual inspection Chest: COMMONS NORMALS: normal palpation of entire chest wall Resp: COMMON NORMALS: normal respiratory effort and clear to auscultation bilaterally AUSCULTATION: clear to auscultation bilaterally Cardio: COMMON NORMALS: regular rate and regular rhythm RATE: regular rate RHYTHM: regular rhythm GI: COMMON NORMALS: Soft to palpation PALPATION: Yes Soft to palpation Back/Pelvis: COMMON NORMALS: thoracic and lumbar spine normal to inspection Extremity: COMMON NORMALS: full ROM Neuro: SENSORIUM/ORIENTATION: Yes alert Skin: COMMON NORMALS: turgor normal GENERAL SKIN EXAM: turgor normal Course Vital Signs: Vital signs: Vital Signs Temperature 98.4 F 01/27/23 21:07 Pulse Rate 99 01/27/23 21:07 Respiratory Rate 18 01/27/23 21:07 Blood Pressure 146/98 01/27/23 21:07 Pulse Oximetry 98 01/27/23 21:07 MDM - Burn/Smoke Inhalation Medical Decision Making 53-year-old male patient comes in today with sore throat after swallowing a cigarette that was lit. On exam posterior pharynx is slightly erythematous with superficial blistering. Lungs are clear to auscultation. Vital signs are normal. Differential diagnosis includes but not limited to esophageal rupture, esophageal burn, GERD. Patient was given a dose of Mylanta and was verified to be able to swallow and hold fluids down. Recommended soft diet and follow-up as needed. Patient reported understanding. Discharge Plan Discharge Patient Disposition: Home Clinical Impression: Esophageal burn Qualifiers: Encounter type: initial encounter Qualified Code(s): T28.1XXA - Burn of esophagus, initial encounter Condition: Stable Prescriptions: No Action (DME) ASO brace See Rx Instructions .Route .MEDSUPPLY Qty: 1 0RF Rx Instructions: As directed vIT D2 PO .MONTHLY Rx Instructions: patient unsure of dosage meloxicam 15 mg tablet See Rx Instructions .ROUTE .COMPLEX Qty: 30 0RF Dose Instruction: TAKE 1 TABLET BY MOUTH DAILY Rx Instructions: TAKE 1 TABLET BY MOUTH DAILY lisinopril 40 mg tablet 40 mg PO DAILY Qty: 30 0RF Rx Instructions: Take 1/2 tab daily x 10 days, then increase to one tab daily. Discharge Orders: Discharge ED (Routine); Ordered 01/27/23 Ordered By: Jake Irwin Referrals: Juan Carlos Casas, [Primary Care Provider] - Discharge Diet: Advance as tolerated Discharge Activity: Increase activity as tolerated Patient Instructions: Soft Diet (ED), Opioid Safety, Pain Management Activity Restrictions/Additional Instructions: Drink plenty of water and fluids. Soft diet for next 2 to 3 days. Avoid really acidic or spicy foods. Avoid really crunchy or hard to chew foods. Use Chloraseptic spray or lozenges for discomfort. Follow-up with primary care for further instruction. Return to ED for worsening symptoms such as high fever, severe chest pain, or shortness of breath. Coding Level of Care Code ED Senior Information Developer for Mir Hirsch
[2023-01-27] MEDS: alum-mag-hydroxide-sime 30 mL UDC PO (22:22)
[2023-01-27 22:55] VITALS: PULSE 91; RESP 18; TEMP 36.6; O2SAT 99
== END 2023-01-27 22:58 | disposition home or self-care (01) ==
PROVIDERS: Emergency Provider Nurse Practitioner Family; PCP Family Medicine
DX: T28.1XXA Burn of esophagus, initial encounter (principal); X08.8XXA Exposure to other specified smoke, fire and flames, initial encounter; F17.210 Nicotine dependence, cigarettes, uncomplicated
CPT/HCPCS: 99283

== ENCOUNTER → 2023-03-31 16:30 | Outpatient (BNVA) | payer BC, MEDICAID, SELFPAY | PROVIDERS: PCP Family Medicine; Visit Provider Emergency Medicine | DX: S80.12XA Contusion of left lower leg, initial encounter; S80.812A Abrasion, left lower leg, initial encounter; L08.9 Local infection of the skin and subcutaneous tissue, unspecified; W22.8XXA Striking against or struck by other objects, initial encounter | CPT/HCPCS: 73590 ==

== ENCOUNTER → 2023-04-24 14:19 | Outpatient (BNVA) | payer BC, MEDICAID, SELFPAY | PROVIDERS: PCP Family Medicine; Visit Provider Nurse Practitioner | DX: M25.562 Pain in left knee (principal); M17.0 Bilateral primary osteoarthritis of knee; F17.200 Nicotine dependence, unspecified, uncomplicated | CPT/HCPCS: 73560; 73565 ==

== ENCOUNTER 2023-05-17 08:16 | Day surgery (SDC) | payer BC, MEDICAID, SELFPAY ==
[2023-05-17 08:26] VITALS: BP 172/97; PULSE 83; RESP 18; TEMP 35.7; O2SAT 95; BMI 40.1
[2023-05-17] MEDS: sodium chloride 0.9% 1,000 ML 30 ML IV (08:42)
--- NOTE | 2023-05-17 09:17 | ANES.PREANE2 ---
Pre-Anesthetic Assessment Height/Weight: Height 1.8 m Weight 130.635 kg Temp Pulse Resp BP Pulse Ox O2 Del Method 96.2 F L 83 18 172/97 95 Room Air 05/17/23 08:26 05/17/23 08:26 05/17/23 08:26 05/17/23 08:26 05/17/23 08:26 05/17/23 08:26 Preop Diagnosis: Screening Operation Date: 05/17/23 09:00 Proposed Procedures p 20351 colon, G0121 screen colon A risk(Not Applicable) - Leandro Pearl DO Familial anesthetic complications: None Was Beta Ariane taken within 24 hours: N/A Was Clonidine taken within 24 hours: N/A Last intake: Intake Last Liquid Date 05/17/23 Last Liquid Time 06:30 Last Solid Date 05/15/23 Last Solid Time 23:55 Social Alcohol (Pint of whiskey a day) and Tobacco (THC gummies at night for sleep) 1 pack(s) per day Exam alert, oriented x 3, clear to auscultation bilaterally and regular rate & rhythm Airway Submandibular: within normal limits Cervical ROM: within normal limits Mallampati: Class II Dentition: full History/ROS No significant history except as noted and No significant complaints Pulmonary None reported CV/HEM Hypertension None reported Hepatic None reported GI Gastroesophageal Reflux Disease (None this morning) Aooendectomy 7-8 months ago Metabolic Morbid Obesity Musc/skel Osteoarthritis/DJD Neuropsych Neuropathy and 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, nothing since) Anesthetic Plan ASA status: 3 Anesthesia: Anesthesia Evaluation, General and MAC Risk of > 500 ml blood loss (7ml/kg in children): No Medications/Allergies Home Medications Medication Instructions Recorded Confirmed Last Taken Type ASO brace #1 ea 08/26/22 05/17/23 05/14/23 Rx trazodone 50 mg tablet 50 mg PO .qhs PRN sleep 30 days 02/14/23 05/17/23 05/14/23 Rx #30 tabs lisinopril 40 mg tablet 40 mg PO DAILY 05/15/23 05/17/23 05/14/23 History meloxicam 15 mg tablet 15 mg PO DAILY 05/15/23 05/17/23 05/14/23 History Allergies Allergy/AdvReac Type Severity Reaction Status Date / Time No Known Allergies Allergy Verified 05/17/23 08:30 Current Medications Generic Name Dose Route Start Last Admin Trade Name Poornima PRN Reason Stop Dose Admin Sodium Chloride 1,000 mls @ 30 mls/hr 05/17/23 08:30 05/17/23 08:42 Sodium Chloride 0.9% IV 05/18/23 08:29 30 mls/hr .Q24H LOLA Administration PFSH Anesthesia Medical History Alcohol use disorder Major depressive disorder Psychiatric care Surgical History H/O left knee surgery History of ankle surgery right ankle Hx of colonoscopy with polypectomy 5 yrs ago S/P appendectomy 12/11/21 Laparoscopic appendectomy Family History Father Cancer, Onset Age: 65 Colon Cancer Grandfather Cancer, Onset Age: 87 Colon Cancer Social History Smoking and tobacco/nicotine status: current every day tobacco/nicotine user Quit status (tobacco/nicotine): not considering quitting Alcohol intake: current Alcohol intake frequency: few times a week Substance/Drug Use: never Adopted: No Caregiver/support person: No Lives independently: Yes Household members: spouse Housing: House Marital status: Number of children: 9 Number of grandchildren: 7 Highest education level completed: Some College, No Degree service: No Current occupational status: employed 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
--- NOTE | 2023-05-17 11:51 | W.PM.OPSUD ---
Surgery/Procedure H&P Update DATE OF PROCEDURE: May 17, 2023 DATE H&P PERFORMED: 04/18/23 H&P UPDATE INFORMATION: I have reviewed H&P completed within last 30 days, I have examined patient prior to procedure and No changes to prior documentation PREOP DIAGNOSIS: Screening PLANNED PROCEDURE: Operation Date: 05/17/23 09:00 Proposed Procedures p 34513 colon, G0121 screen colon A risk(Not Applicable) - Leandro Pearl, DO
[2023-05-17 12:17] VITALS: BP 115/77; PULSE 75; RESP 16; TEMP 36.3; O2SAT 97
[2023-05-17 12:27] VITALS: BP 128/83; PULSE 83; RESP 16; O2SAT 97
--- NOTE | 2023-05-17 16:41 | ANE.PACU2 ---
Inpatient post-anesthesia follow up: Airway intact: Yes Vital signs: Temperature 97.4 F Pulse Rate 83 Respiratory Rate 16 Blood Pressure 128/83 Pulse Oximetry 97 Oxygen Delivery Me thod Room Air Oxygen Flow Rate 6 Fraction of Inspir ed Oxygen Hydration adequate: Yes Nausea and vomiting: No Pain level: 2 Mental status: Baseline
== END 2023-05-17 12:52 | disposition home or self-care (01) ==
PROVIDERS: PCP Family Medicine; Visit Provider Surgery
PROC: 0DJD8ZZ Inspection of Lower Intestinal Tract, Via Natural or Artificial Opening Endoscopic (ICD-10-PCS; CPT 45378; principal; 2023-05-17 09:00)
DX: Z12.11 Encounter for screening for malignant neoplasm of colon (principal); D12.5 Benign neoplasm of sigmoid colon; K64.8 Other hemorrhoids; I10 Essential (primary) hypertension; K21.9 Gastro-esophageal reflux disease without esophagitis; E66.01 Morbid (severe) obesity due to excess calories; Z68.41 Body mass index [BMI] 40.0-44.9, adult; F17.200 Nicotine dependence, unspecified, uncomplicated; Z90.49 Acquired absence of other specified parts of digestive tract; Z80.0 Family history of malignant neoplasm of digestive organs
CPT/HCPCS: 45385; 76937; 88305; J2704; J7030

== ENCOUNTER → 2023-07-13 10:28 | Outpatient (BNVA) | payer BC, SELFPAY | PROVIDERS: PCP Family Medicine; Visit Provider Nurse Practitioner | DX: F17.200 Nicotine dependence, unspecified, uncomplicated; M17.0 Bilateral primary osteoarthritis of knee | CPT/HCPCS: 36415; 73560; 73565; 80053; 81001; 83036; 85025 ==

== ENCOUNTER 2023-07-28 10:29 | Outpatient (CLI) | payer BC, MEDICAID, SELFPAY ==
--- NOTE | 2023-07-28 10:45 | CT_ITS ---
WS: [id number] CT LEFT knee, noncontrast HISTORY: pre op TECHNIQUE: Protocol for DAMIAN total knee replacement has been obtained. This includes axial imaging th rough the LEFT hip, LEFT knee and LEFT ankle. DLP: 1160.57 mGy.cm COMPARISON: 07/13/2023 There is minimal narrowing of the LEFT hip joint. No osseous destruction. LEFT knee: Severe tricompartment osteoarthritis. Joint spaces are narrowed. Marginal osteophytes. Sahra or ACL repair. LEFT ankle: Negative. IMPRESSION: CT imaging provided for [facility] robotic total knee replacement.
== END 2023-07-28 10:30 | disposition home or self-care (01) ==
LOC: RAD 10:29
PROVIDERS: PCP Family Medicine; Visit Provider Nurse Practitioner
DX: Z01.818 Encounter for other preprocedural examination (principal); M17.12 Unilateral primary osteoarthritis, left knee
CPT/HCPCS: 73700

== ENCOUNTER → 2023-08-03 09:07 | Outpatient (BNVA) | payer BC, SELFPAY | PROVIDERS: PCP Family Medicine; Visit Provider Nurse Practitioner | DX: Z01.818 Encounter for other preprocedural examination (principal); M25.562 Pain in left knee; M17.0 Bilateral primary osteoarthritis of knee; M17.12 Unilateral primary osteoarthritis, left knee; F17.200 Nicotine dependence, unspecified, uncomplicated | CPT/HCPCS: 81001 ==

== ENCOUNTER 2023-08-08 12:22 | Observation (INO) | payer BC, MEDICAID, SELFPAY ==
[2023-08-08] VITALS (20 sets, daily range): BP systolic 76–164; BP diastolic 55–102; PULSE 54–79; RESP 15–26; TEMP 36.2–36.6; O2SAT 90–99; BMI 40.1
[2023-08-08] MEDS: acetaminophen 1,000 MG/100 ML PIGGYBACK 400 MG IV ×3 (06:42→20:21)
[2023-08-08] MEDS: sodium chloride 0.9% 1,000 ML 30 ML IV (06:42)
[2023-08-08] MEDS: CELEcoxib 200 mg Capsule 400 MG PO (06:43)
[2023-08-08] MEDS: gabapentin 300 mg Capsule PO (06:43)
--- NOTE | 2023-08-08 06:55 | W.PM.OPSUD ---
Surgery/Procedure H&P Update DATE OF PROCEDURE: August 08, 2023 DATE H&P PERFORMED: 04/18/23 H&P UPDATE INFORMATION: I have reviewed H&P completed within last 30 days, I have examined patient prior to procedure, No changes to prior documentation and H&P is in [facility] EMR on date indicated PLANNED PROCEDURE: Operation Date: 08/08/23 07:00 Proposed Procedures p : Left knee removal of orthopedic hardware with conversione to total knee arthoplasty with Rex guidance (39746, 77007,M17.12(Left) - Renay Peres MD s Rex Robot Total Knee Arthroplasty(Left) - Renay Peres MD Related Problem List Diagnoses (1) Osteoarthritis of left knee: Qualifiers: Osteoarthritis type: primary Qualified Code(s): M17.12 - Unilateral primary osteoarthritis, left knee
--- NOTE | 2023-08-08 06:58 | ANES.PREANE2 ---
Pre-Anesthetic Assessment Height/Weight: Height 1.8 m Weight 130.635 kg Temp Pulse Resp BP Pulse Ox O2 Del Method 97.3 F L 79 18 164/102 98 Room Air 08/08/23 06:07 08/08/23 06:07 08/08/23 06:07 08/08/23 06:07 08/08/23 06:07 08/08/23 06:18 Operation Date: 08/08/23 07:00 Proposed Procedures p : Left knee removal of orthopedic hardware with conversione to total knee arthoplasty with Rex guidance (02782, 77657,M17.12(Left) - Renay Peres MD s Rex Robot Total Knee Arthroplasty(Left) - Renay Peres MD Familial anesthetic complications: none Was Beta Ariane taken within 24 hours: N/A Was Clonidine taken within 24 hours: N/A Last intake: Intake Last Liquid Date 08/07/23 Last Liquid Time 23:30 Last Solid Date 08/07/23 Last Solid Time 23:30 Social Alcohol and Tobacco Exam alert, oriented x 3, clear to auscultation bilaterally and regular rate & rhythm Airway Dentition: full CV/HEM Hypertension Anesthetic Plan ASA status: 3 Anesthesia: Regional (specify below) Risk of > 500 ml blood loss (7ml/kg in children): No Medications/Allergies Home Medications Medication Instructions Recorded Confirmed Last Taken Type ASO brace #1 ea 08/26/22 07/13/23 05/14/23 Rx meloxicam 15 mg tablet 15 mg PO DAILY 05/15/23 08/07/23 07/25/23 History lisinopril 40 mg tablet 40 mg PO DAILY #90 tabs 06/14/23 08/07/23 08/07/23 Rx trazodone 100 mg tablet 100 mg PO DIRECTED PRN insomnia 06/19/23 08/07/23 08/07/23 Rx #60 tabs amlodipine 5 mg tablet 5 mg PO DAILY #30 tabs 08/03/23 08/07/23 08/07/23 Rx Allergies Allergy/AdvReac Type Severity Reaction Status Date / Time No Known Allergies Allergy Verified 08/03/23 09:15 Current Medications Generic Name Dose Route Start Last Admin Trade Name Freq PRN Reason Stop Dose Admin Sodium Chloride 1,000 mls @ 30 mls/hr 08/08/23 06:00 08/08/23 06:42 Sodium Chloride 0.9% IV 08/09/23 05:59 30 mls/hr .Q24H LOLA Administration PFSH Anesthesia Medical History Nicotine dependence, cigarettes, uncomplicated Primary insomnia Chronic post-traumatic stress disorder Alcohol use disorder, moderate, dependence Current use half pint Pawan Dejesus over week time frame Psychiatric care Surgical History Hx of colonoscopy with polypectomy 5 yrs ago History of ankle surgery right ankle S/P appendectomy 12/11/21 Laparoscopic appendectomy H/O left knee surgery Family History Father Cancer, Onset Age: 65 Colon Cancer Grandfather Cancer, Onset Age: 87 Colon Cancer Social History Smoking and tobacco/nicotine status: current every day tobacco/nicotine user Quit status (tobacco/nicotine): not considering quitting Alcohol intake: current Alcohol intake frequency: few times a week Substance/Drug Use: never Adopted: No Caregiver/support person: No Lives independently: Yes Household members: spouse Housing: House Marital status: Number of children: 9 Number of grandchildren: 7 Highest education level completed: Some College, No Degree service: No Current occupational status: employed 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
--- NOTE | 2023-08-08 06:58 | ANES.PROC ---
Anesthesia Procedures Procedure/Date: 08/08/23 Nerve Block ^: Nerve Block 1: Main Anesthesia: spinal anesthesia block Time Out Performed: Yes Consent: requested by attending/covering physician, from patient, risks and benefits reviewed and patient agrees to proceed Nerve block location: adductor canal (L) Anesthesia monitors applied: pulse oximetry, EKG, BP cuff and oxygen Nerve block position: supine Anesthetic Used: ropivicaine 0.5% (30 m) and with decadron (4 mg) Ultrasound used to: recognize landmarks and visualize and ID femerol nerve Nerve Stimulator Used?: No Interscalene/Femoral BLK: 4 stimuplex 21 g needle used for position and inplane approach, visualize local anesthetic spread and no vascular puncture identified Injection: neg aspiration of heme Patient Tolerated Procedure: well Complications: none
[2023-08-08] MEDS: ceFAZolin 2,000 MG in sodium chloride 0.9% (plus) 50 ML 100 MG IV ×2 (07:12→15:27)
[2023-08-08] MEDS: tranexamic acid 1,000 mg/10mL SDV 1000 MG IV (07:30)
[2023-08-08] MEDS: thrombin 5,000 unit SDV 5000 UNIT XX (08:14)
[2023-08-08] MEDS: BUPivacaine liposome 13.3 mg/mL SDV 10 mL 266 MG INFILTRATI (08:15)
[2023-08-08] MEDS: BUPivacaine 0.5% INJ 30 mL 20 ML INJECTION (08:15)
[2023-08-08] MEDS: vancomycin 1,000 MG SDV 1000 MG XX (08:15)
[2023-08-08] MEDS: ceFAZolin 1,000 mg SDV 2000 MG IRRIGATION (08:16)
--- NOTE | 2023-08-08 11:20 | PM.OP ---
Operative Report Date of procedure: August 08, 2023 Pre-op diagnosis: Degenerative osteoarthritis left knee with flexion contracture and varus deformity and retained hardware Post-op diagnosis: Degenerative osteoarthritis left knee with flexion contracture and varus deformity and retained hardware Post-op findings: Degenerative osteoarthritic change with significant loss of cartilage medially and laterally with large osteophytes with orthopedic hardware that was able to be bypassed with surgical procedure Procedure done: Left total knee arthroplasty with Rex guidance Implants: The Luisa total knee system with a size 7 triathlon beaded cruciate retaining femur left, a triathlon titanium tibial component size 8 beaded, a triathlon X3 tibial bearing CS insert size 8 X 10 mm and a beaded triathlon titanium asymmetric patella size 40 x 11 mm Specimens removed/disposition: Bone, disposed of Surgeon: Renay Peres MD Ob/Gyn Nurse: Jeane Suazo, nurse practitioner, who services were essential for positioning, retraction, closure, and completion of the surgical procedure Anesthesia: Spinal (With MAC, ASA 3 and supplemental adductor block) Estimated blood loss (mL): 340 Tourniquet time (min): 0 (Not utilized) IV fluids (mL): 1,200 Urine output (mL): 350 Complications: None Findings: Severe degenerative osteoarthritis with large osteophytes, flexion contracture, varus deformity, and retained hardware which was able to be bypassed without removal during the surgical procedure. Condition: stable Disposition: PACU (Then to floor for postoperative rehabilitation and pain management) Brief History: This is a 53 year old male patient who presents today for left total knee arthroplasty. Patient states the meloxicam has been helping with symptoms, but he has continued pain. Previous HERMELINDO knee cortisone injection lasted 2-3 weeks and provided relief at that time. Home PT program has been completed. Patient states the majority of his pain is to the medial knee. Patient states the pain is dull and constant. Patient states the knee pops, catches and grinds. Patient states the knee does keep him up at night. 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 He states that the pain is now debilitating to the point he is struggling with his normal ADLs. While in the office, risks and complications were discussed, and consents were signed. Procedure: The patient was brought to the operating theater, and after undergoing spinal anesthetic, with supplemental adductor canal block, ASA 3, the left lower extremity was prepped with Dura-Prep and draped in usual fashion following placement of a tourniquet high on the leg. The leg was then draped free.? Tourniquet was not elevated during the case.? A surgical pause was performed, and at the time of the surgical pause, we confirmed the site and side of surgery. Additionally, we confirmed the appropriate and timely administration of preoperative antibiotics, Ancef 2 g and Transexemic acid 1 g.? The availability of equipment was confirmed, and the patient's identity was verbalized as well. Following the surgical pause, an incision was made centering over the patella continuing proximally and distally as necessary to allow access to the knee joint. Dissection continued through skin and soft tissues using a scalpel. Hemostasis was obtained using electrocautery. The skin incision was followed by a median parapatellar arthrotomy which incorporated the incision from the patient's ACL reconstruction. The leg was extended and the patella was able to be displaced laterally.? Appropriate arrays and markers were placed in appropriate position for use of the Rex.? Preoperative planning had been accomplished and was discussed in detail with the [facility] pharmaceutical sales representative.? Intraoperative mapping of the femur and tibia was accomplished after the arrays were placed.? Internal markers were also placed.? Once we had accomplished the Rex mapping, we began the appropriate resections for placement of the prosthesis.? The plan was for a cruciate retaining right total knee arthroplasty. Once appropriate mapping had been accomplished retraction was established using manual retraction by surgical technicians and also the Rex leg positioner and retractors.? The knee was evaluated.? There was significant osteoarthritic change as well as slight flexion contracture.? Appropriate bone resection was accomplished using the Rex.? The femur was sized to a size 7, and the tibia was sized to a size 8 for preoperative planning.? Attention was directed to the tibia initially, and subsequent to that, the femoral cuts were made with the Rex guidance.? Osteophytes were removed prior to this portion of the procedure.? We had performed a minimal medial release at the beginning of the procedure to allow for placement of the array.? Proximal tibia was evaluated, and it was felt that appropriate size for the tibia was a size 8.? Tray was noted to fit nicely with good coverage.? Rim fit was accomplished with the size 8. A trial reduction was accomplished after osteophytes have been removed as well as the medial and lateral menisci.? We had removed the anterior cruciate ligament at the beginning of the case and preserved the posterior cruciate ligament.? Trial reduction was accomplished with a size 7 femoral cruciate retaining component and a size 8 CS tibial bearing insert which was 9 mm.? Alignment was felt to be appropriate as well.? Plans were made for a 10 mm insert to be used at final implantation. Trial components were removed after the femur had been drilled.? Prior to removal of the tibial tray which had been pinned in position with appropriate rotation as determined by the Rex plan, we broached the tibia.? Subsequently, the 4 drill holes were made for the prosthetic component.? All trial components were removed, and the wound was irrigated.? Plans were made for insertion of the prosthetic components.? Prior to this, the patella was manually prepared.? After resection of the articular surface with the jogging system, it was measured and measured a 40 mm patella.? We resected approximately 11 mm of patella.? Patellar height was restored with the patellar component. Once again, the wound was irrigated.? The Tritanium tibia was impacted into position.? The beaded femur was then impacted into position in a cementless fashion. The CS tibial insert was placed prior to placement of the femoral component. The patella was pressed into position with a patellar clamp.? Exparel was injected about the components deep and superficially.? The knee was then copiously irrigated with betadine and saline and suctioned dry. Attention was then directed to closure. Closure was accomplished with 0 Vicryl in the fascial tissues.? The suture line of 0 Vicryl was supplemented with strata fix, #1, with a running stitch from proximal to distal and a second running stitch from distal to proximal.? This was followed by Surgiflo and vancomycin powder.? Following this, a 2-0 Monocryl was used in the subcutaneous tissues, and the skin was closed with 3-0 Strata fix.? Care was taken to assure an excellent subcutaneous as well as skin closure.? A sterile dressing was then placed consisting of Dermabond Prineo, OpSite, ABD, sterile soft roll, and an Deric wrap including over the foot. The patient was returned the Recovery Room in a satisfactory condition. X-rays were obtained and reviewed there.? The patient will be discharged to the floor for postoperative rehabilitation and pain management. Related Problem List Diagnoses (1) Osteoarthritis of left knee: (2) Retained orthopedic hardware: (3) Morbid obesity with BMI of 40.0-44.9, adult:
--- NOTE | 2023-08-08 11:30 | XRR_ITS ---
PROCEDURE INFORMATION: Exam: XR Left Knee Exam date and time: 08/08/2023 11:37 AM Age: 53 years old Clinical indication: Device placement; Joint replacement hardware; Prior surgery; Surgery date: Post-operative (0-2 days); Surgery type: Lt total knee; Additional info: Status post left total knee arthroplasty TECHNIQUE: Imaging protocol: Radiologic exam of the left knee. Views: 1 or 2 views. COMPARISON: CT knee LT wo con* [id number] 07/28/2023 11:05 AM FINDINGS: Bones/joints: Interval left total knee replacement in anatomic position with no complication evident. Postoperative changes are present in the soft tissues. Soft tissues: See Bones/joints finding. XR/XR knee LT 1-2V [id number] IMPRESSION: Interval total knee replacement.
[2023-08-08] MEDS: ketorolac 30 mg/mL INJ IVP (11:57)
--- NOTE | 2023-08-08 12:25 | ANE.PACU2 ---
Inpatient post-anesthesia follow up: Airway intact: Yes Vital signs: Temperature 97.9 F Pulse Rate 72 Respiratory Rate 18 Blood Pressure 112/65 Pulse Oximetry 96 Oxygen Delivery Me thod Room Air Oxygen Flow Rate 6 Fraction of Inspir ed Oxygen Hydration adequate: Yes Nausea and vomiting: No Pain level: 1 Mental status: Baseline
[2023-08-08] MEDS: oxyCODONE 5 mg IR Tab/Cap PO ×3 (12:45→21:10)
[2023-08-08] MEDS: chlorhexidine gluconate 0.12% Btl 473 mL 30 ML MUCOUS MEM ×3 (12:53→20:23)
[2023-08-08] MEDS: CELEcoxib 200 mg Capsule PO (12:53)
[2023-08-08] MEDS: mupirocin oint 22 gm 1 APPLIC NASAL (17:02)
[2023-08-08] MEDS: iron polysaccharide complex 150 mg Capsule PO (17:03)
[2023-08-08] MEDS: sennosides-docusate Tablet 2 TAB PO (17:03)
[2023-08-08] MEDS: calcium carbonate 500 mg Chew Tablet 1000 MG PO (17:03)
[2023-08-08] MEDS: trazodone 100 mg Tablet PO (22:29)
[2023-08-08] MEDS: metoclopramide 5 mg/mL SDV 2 mL 10 MG IV (22:29)
[2023-08-09] VITALS: BP 112/65; PULSE 72; RESP 16; TEMP 36.6; O2SAT 96
[2023-08-09] MEDS: trazodone 100 mg Tablet PO (00:11)
[2023-08-09] MEDS: CELEcoxib 200 mg Capsule PO ×2 (00:11→11:14)
[2023-08-09] MEDS: ceFAZolin 2,000 MG in sodium chloride 0.9% (plus) 50 ML 100 MG IV ×2 (00:12→07:11)
[2023-08-09] MEDS: acetaminophen 1,000 MG/100 ML PIGGYBACK 400 MG IV (04:30)
[2023-08-09 04:55] VITALS: RESP 18
[2023-08-09] MEDS: oxyCODONE 5 mg IR Tab/Cap PO ×2 (04:55→10:34)
[2023-08-09 05:03] LABS: Basophils % 0.2 %; Eosinophils % 0.2 %; Hematocrit 34.8 % (37-53); Lymphocytes # 2.2 10^3/uL (0.8-4.8); Lymphocytes % 17.8 %; Mean Corpuscular HGB Conc 33.9 g/dL (30-55); Mean Corpuscular Hemoglobin 30.9 pg (27-33); Mean Corpuscular Volume 91.1 fl (82-101); Mean Platelet Volume 10.7 fL (7.4-10.4); Monocytes # 1.2 10^3/uL (0.2-0.9); Monocytes % 9.4 %; Neutrophils # 8.79 10^3/uL (1.8-7.7); Neutrophils % 71.7 %; Nucleated Red Blood Cells % 0 %; Platelet Count 192 10^3/cmm (157-399); Red Blood Count 3.82 10^6/uL (3.85-5.65); White Blood Count 12.28 10^3/uL (3.29-11.43)
[2023-08-09 05:22] LABS: Anion Gap 16.2 (5-19); Blood Urea Nitrogen 24 mg/dL (6-20); Calcium 7.8 mg/dL (8.5-10.5); Carbon Dioxide 21 mmol/L (22-29); Chloride 104 mmol/L (98-107); Glomerular Filtration Rate 63.6 mL/min (90-130); Glucose 119 mg/dL (65-115); Osmolality Calculated 289 mOsm/kg (285-295); Potassium 4.2 mmol/L (3.5-5.1); Sodium 137 mmol/L (136-145)
[2023-08-09] MEDS: iron polysaccharide complex 150 mg Capsule PO (07:11)
[2023-08-09] MEDS: cholecalciferol (vitamin D3) 1,000 unit Tablet 1000 UNIT PO (08:33)
[2023-08-09] MEDS: calcium carbonate 500 mg Chew Tablet 1000 MG PO (08:33)
[2023-08-09] MEDS: mupirocin oint 22 gm 1 APPLIC NASAL (08:34)
[2023-08-09] MEDS: aspirin 325 mg EC Tablet PO (08:34)
[2023-08-09] MEDS: multivitamin therapeutic Tablet 1 TAB PO (08:34)
[2023-08-09] MEDS: sennosides-docusate Tablet 2 TAB PO (08:34)
[2023-08-09] MEDS: lisinopril 20 mg Tablet 40 MG PO (08:34)
[2023-08-09] MEDS: amlodipine 5 mg Tablet PO (08:34)
[2023-08-09] MEDS: chlorhexidine gluconate 0.12% Btl 473 mL 30 ML MUCOUS MEM ×2 (08:34→11:14)
[2023-08-09 08:36] VITALS: BP 111/73; PULSE 83; RESP 18; TEMP 36.4; O2SAT 96
[2023-08-09 10:34] VITALS: RESP 18
[2023-08-09] MEDS: acetaminophen 500 mg Tablet 1000 MG PO (11:14)
[2023-08-09 12:04] VITALS: BP 110/68; PULSE 74; RESP 18; TEMP 36.3; O2SAT 97
--- NOTE | 2023-08-09 13:37 | PM.DCS ---
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 cement: Status: Acute Permanent problem details: Date of procedure: August 08, 2023 Diagnosis: Degenerative osteoarthritis left knee with flexion contracture and varus deformity and retained hardware Procedure done: Left total knee arthroplasty with Rex guidance Implants: The [place] total knee system with a size 7 triathlon beaded cruciate retaining femur left, a triathlon titanium tibial component size 8 beaded, a triathlon X3 tibial bearing CS insert size 8 X 10 mm and a beaded triathlon titanium asymmetric patella size 40 x 11 mm (2) Osteoarthritis of left knee: Status: Acute Qualifiers: Osteoarthritis type: primary Qualified Code(s): M17.12 - Unilateral primary osteoarthritis, left knee (3) Retained orthopedic hardware: Status: Acute (4) Morbid obesity with BMI of 40.0-44.9, adult: Status: Acute Reason for Visit Reason for Visit: M17.12 Brief History: This is a 53 year old male patient who presents today for left total knee arthroplasty. Patient states the meloxicam has been helping with symptoms, but he has continued pain. Previous HERMELINDO knee cortisone injection lasted 2-3 weeks and provided relief at that time. Home PT program has been completed. Patient states the majority of his pain is to the medial knee. Patient states the pain is dull and constant. Patient states the knee pops, catches and grinds. Patient states the knee does keep him up at night. 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 He states that the pain is now debilitating to the point he is struggling with his normal ADLs. While in the office, risks and complications were discussed, and consents were signed. Hospital Course Hospital Course 53-year-old gentleman presented for left total knee arthroplasty. Postoperatively, he was admitted to the hospital under observation status. The patient did well following his total knee arthroplasty. He was neurologically intact. Pain was well-controlled on oral medications. He had no signs of DVT. After evaluation, it was elected to discharge the patient today following surgery. He was in agreement as well as physical therapy. Secondary to insurance, he will be unable to have outpatient physical therapy, but he has been given a home exercise program. Physical Exam Const: COMMON NORMALS: no acute distress, average body habitus, patient oriented x3 and alert GENERAL APPEARANCE: cooperative and comfortable ORIENTATION/CONSCIOUSNESS: Yes awake HENMT: COMMON NORMALS: normocephalic and atraumatic HEAD & SCALP: normocephalic and atraumatic Eye: GENERAL EYE: appearance normal, both eyes and all related structures Chest: COMMONS NORMALS: normal inspection of the chest Resp: COMMON NORMALS: normal respiratory effort EFFORT & INSPECTION: Yes able to speak in complete sentences and Yes symmetric chest movement Extremity: LEFT LOWER EXTREMITY: Yes knee joint (Large outer dressing is removed.) Left knee: Yes inspection (No significant swelling or ecchymosis.), Yes ROM (Able to straight leg raise.) and Yes neurovascular exam (Intact distally with no evidence of DVT) Neuro: COMMON NORMALS: patient oriented x3 SENSORIUM/ORIENTATION: Yes alert Psych: COMMON NORMALS: mental status grossly normal APPEARANCE: Yes grossly normal ATTITUDE: Yes calm and Yes engaged ATTENTION/CONCENTRATION: Yes attention grossly intact Skin: COMMON NORMALS: no rashes or lesions noted GENERAL SKIN EXAM: no rashes or lesions noted Urinary Catheter Management: [place]: Cath Placed During This Visit: yes, but has since been removed by the nurse Reason for Continuing Indwelling Catheter: Perioperative Use in Selected Surgeries Date Urinary Catheter Removed: 08/09/23 Time Urinary Catheter Discontinued: 06:14 Discharge Data Studies Completed and Pending Completed Studies During Hospitalization Category Date Time Status XR knee LT 1-2V [id number] Urgent Exams 08/08/23 11:30 Completed Pending at discharge Category Date Time Status Complete Blood Count w/Auto AM LABS Lab 08/10/23 04:00 Ordered Complete Blood Count w/Auto AM LABS Lab 08/11/23 04:00 Ordered Radiology Impressions Knee X-Ray 08/08/23 11:30 IMPRESSION: Interval total knee replacement. Laboratory Results WBC 12.28 10^3/uL (3.29-11.43) H 08/09/23 04:37 RBC 3.82 10^6/uL (3.85-5.65) L 08/09/23 04:37 Hgb 11.80 g/dL (11.27-16.99) 08/09/23 04:37 Hct 34.8 % (37-53) L 08/09/23 04:37 MCV 91.1 fl (82-101) 08/09/23 04:37 MCH 30.9 pg (27-33) 08/09/23 04:37 MCHC 33.9 g/dL (30-55) 08/09/23 04:37 RDW 13.0 % (12.1-15.1) 08/09/23 04:37 Plt Count 192 10^3/cmm (157-399) 08/09/23 04:37 MPV 10.7 fL (7.4-10.4) H 08/09/23 04:37 Neut % (Auto) 71.7 % 08/09/23 04:37 Lymph % (Auto) 17.8 % 08/09/23 04:37 [place] % (Auto) 9.4 % 08/09/23 04:37 Eos % (Auto) 0.2 % 08/09/23 04:37 Baso % (Auto) 0.2 % 08/09/23 04:37 Neut # (Auto) 8.79 10^3/uL (1.8-7.7) H 08/09/23 04:37 Lymph # (Auto) 2.2 10^3/uL (0.8-4.8) 08/09/23 04:37 [place] # (Auto) 1.2 10^3/uL (0.2-0.9) H 08/09/23 04:37 Eos # (Auto) 0.0 10^3/uL (0.0-0.8) 08/09/23 04:37 Baso # (Auto) 0.0 10^3/uL (0.0-0.1) 08/09/23 04:37 Nucleated RBC % (auto) 0 % 08/09/23 04:37 Nucleated RBCs # 0.0 /100WBC 08/09/23 04:37 Sodium 137 mmol/L (136-145) 08/09/23 04:37 Potassium 4.2 mmol/L (3.5-5.1) 08/09/23 04:37 Chloride 104 mmol/L (98-107) 08/09/23 04:37 Carbon Dioxide 21 mmol/L (22-29) L 08/09/23 04:37 Anion Gap 16.2 (5-19) 08/09/23 04:37 BUN 24 mg/dL (6-20) H 08/09/23 04:37 Creatinine 1.2 mg/dL (0.7-1.2) 08/09/23 04:37 GFR Calculation 63.6 mL/min (90-130) L 08/09/23 04:37 Glucose 119 mg/dL (65-115) H 08/09/23 04:37 Calculated Osmolality 289 mOsm/kg (285-295) 08/09/23 04:37 Calcium 7.8 mg/dL (8.5-10.5) L 08/09/23 04:37 Vitals Last Vital Signs Temp 97.4 F L 08/09/23 12:04 Pulse 74 08/09/23 12:04 Resp 18 08/09/23 12:04 BP 110/68 08/09/23 12:04 Pulse Ox 97 08/09/23 12:04 O2 Del Method Room Air 08/09/23 12:04 O2 Flow Rate 6 08/08/23 11:30 Discharge Plan Discharge Patient Disposition: Home Health Service Condition: Stable Prescriptions: New acetaminophen 500 mg Tablet 1,000 mg PO Q8H 15 Days Qty: 0 0RF aspirin 325 mg Tablet,Delayed Release (Dr/Ec) 325 mg PO DAILY 30 Days Qty: 0 0RF oxycodone 5 mg Tablet 5 mg PO Q4H PRN (Reason: Moderate Pain) 7 Days Qty: 30 0RF Continued (DME) ASO brace See Rx Instructions .Route .MEDSUPPLY Qty: 1 0RF Rx Instructions: As directed trazodone 100 mg tablet 100 mg PO DIRECTED PRN (Reason: insomnia) Qty: 60 3RF Rx Instructions: May take 1-2 tabs 30-60 min prior to bedtime if not asleep prior to 2 am may take 1 tablet amlodipine 5 mg tablet 5 mg PO DAILY Qty: 30 0RF lisinopril 40 mg tablet 40 mg PO DAILY Qty: 90 0RF meloxicam 15 mg tablet 15 mg PO DAILY Hold Instructions: Resume on 05/20/23. Rx Instructions: TAKE 1 TABLET BY MOUTH DAILY Discharge Orders: Discharge Order (Routine); Ordered 08/09/23 Ordered By: Renay Peres Referrals: Juan Carlos Casas DO [Primary Care Provider] - 08/30/23 10:00 am () Renay Peres MD [Physician] - 08/23/23 10:45 am Discharge Diet: Advance as tolerated and Usual diet Discharge Activity: Increase activity as tolerated, Limit activity as instructed, Use walker/crutches as instructed and As per PT/OT instructions Patient Instructions: Aspirin (By mouth), Oxycodone, Rapid Release (By mouth), Total Knee Replacement (GEN), Joint Replacement Stoplight, Opioid Safety Activity Restrictions/Additional Instructions: Ice and elevation to left lower extremity. Maintain dressing until it comes off on its own. Range of motion, strengthening, and gait training per physical therapy training. Discharge Attestations Time Spent in Discharge Care*: greater than 30 min Specific Discharge Activities: educating patient, documenting/other paperwork and evaluating patient/reviewing data Quality Metrics Clinical Quality Measures [ No reported AMI, CVA or VTE this stay] Coding Level of Care Code Acute Code for Chg Fwd Diagnoses Status post total left knee replacement not using cement Z96.652 Primary osteoarthritis of left knee M17.12 Osteoarthritis type: primary Retained orthopedic hardware Z96.9 Morbid obesity with BMI of 40.0-44.9, adult E66.01; Z68.41
--- NOTE | 2023-08-09 13:56 | PC.NURSE ---
Discharge instructions provided to pt and his . NO questions or concerns at this time. Pt to private vehicle with all belongings and ice packs.
[2023-08-09 13:57] VITALS: BP 110/68; PULSE 74; RESP 18; TEMP 36.3; O2SAT 97
== END 2023-08-09 13:57 | disposition home health service (06) ==
PROVIDERS: Nurse Practitioner; Admitting Provider Specialist; PCP Family Medicine; Visit Provider Specialist
PROC: 8E0Y0CZ Robotic Assisted Procedure of Lower Extremity, Open Approach (ICD-10-PCS; CPT 27447; 2023-08-08 07:00)
DX: M17.12 Unilateral primary osteoarthritis, left knee (principal); M24.562 Contracture, left knee; M21.162 Varus deformity, not elsewhere classified, left knee; Z96.9 Presence of functional implant, unspecified; E66.01 Morbid (severe) obesity due to excess calories; Z68.41 Body mass index [BMI] 40.0-44.9, adult; I10 Essential (primary) hypertension; F17.210 Nicotine dependence, cigarettes, uncomplicated
CPT/HCPCS: 20985; 27447; 36415; 73560; 80048; 85025; 97110; 97116; 97161; 97165; C1776; C9290; G0378; J0131; J0690; J1100; J1885; J2250; J2704; J2765; J2795; J3370; J3490; J7030

== ENCOUNTER → 2023-08-23 11:12 | Outpatient (BNVA) | payer BC, MEDICAID, SELFPAY | PROVIDERS: PCP Family Medicine; Visit Provider Specialist | DX: Z96.652 Presence of left artificial knee joint (principal); M17.12 Unilateral primary osteoarthritis, left knee | CPT/HCPCS: 73560; 73565 ==

== ENCOUNTER → 2023-10-18 15:40 | Outpatient (BNVA) | payer BC, MEDICAID, SELFPAY | PROVIDERS: PCP Family Medicine; Visit Provider Specialist | DX: Z96.652 Presence of left artificial knee joint (principal) | CPT/HCPCS: 73560; 73565 ==

== ENCOUNTER → 2024-02-03 10:55 | Outpatient (BNVA) | payer BC, MEDICAID, SELFPAY | PROVIDERS: PCP Family Medicine; Visit Provider Emergency Medicine | DX: J06.9 Acute upper respiratory infection, unspecified (principal); U07.1 COVID-19; J45.21 Mild intermittent asthma with (acute) exacerbation | CPT/HCPCS: 87426 ==

== ENCOUNTER → 2024-08-07 16:12 | Outpatient (BNVA) | payer BC, MEDICAID, SELFPAY | PROVIDERS: PCP Family Medicine; Visit Provider Specialist | DX: M17.0 Bilateral primary osteoarthritis of knee; Z96.652 Presence of left artificial knee joint; E66.01 Morbid (severe) obesity due to excess calories; Z68.41 Body mass index [BMI] 40.0-44.9, adult | CPT/HCPCS: 73560; 73565 ==